=== PATIENT | female | born 1965 | race Caucasian/White ===

== ENCOUNTER 2020-01-16 08:20 | Emergency (ER) | payer OTHER, SELFPAY ==
[2020-01-16 08:22] VITALS: BP 149/82; PULSE 80; RESP 20; TEMP 36.6; O2SAT 98; BMI 47.7
--- NOTE | 2020-01-16 08:39 | RAD_ITS ---
STUDY: X-RAY - RIGHT KNEE REASON FOR EXAM: Female, 54 years old. pt tripped getting out of car this am. pt complains of rt elbow pain, bilateral knee pain. hx of vagovagal. states does have headache TECHNIQUE: 3 view(s) of the knee. COMPARISON: None. FINDINGS: Normal visualized distal femur. Normal visualized proximal tibia and fibula. Normal proximal tibiofibular articulation. There is mild degenerative arthrosis of the medial femorotibial compartment. Normal lateral femorotibial compartment. There is mild degenerative arthrosis of the patellofemoral articulation. The soft tissue structures are unremarkable. RAD/Knee 4 or More Views IMPRESSION: Degenerative arthrosis. Electronically Signed: Osbaldo Buenrostro, at 9:21 EDT Tel , Service support ,
--- NOTE | 2020-01-16 08:39 | RAD_ITS ---
STUDY: X-RAY - RIGHT ELBOW REASON FOR EXAM: Female, 54 years old. pt tripped getting out of car this am. pt complains of rt elbow pain, bilateral knee pain. hx of vagovagal. states does have headache TECHNIQUE: 3 view(s) of the elbow. COMPARISON: None. FINDINGS: Normal visualized humerus, radius and ulna. Normal radiocapitellar and ulnotrochlear articulations. The soft tissue structures are unremarkable. RAD/Elbow min 3 Views IMPRESSION: Normal x-ray examination of the elbow. Electronically Signed: Osbaldo Buenrostro, at 9:14 EDT Tel , Service support ,
--- NOTE | 2020-01-16 08:39 | RAD_ITS ---
STUDY: X-RAY - LEFT KNEE REASON FOR EXAM: Female, 54 years old. pt tripped getting out of car this am. pt complains of rt elbow pain, bilateral knee pain. hx of vagovagal. states does have headache TECHNIQUE: 3 view(s) of the knee. COMPARISON: None. FINDINGS: Normal visualized distal femur. Normal visualized proximal tibia and fibula. Normal proximal tibiofibular articulation. There is mild degenerative arthrosis of the medial femorotibial compartment. There is mild degenerative arthrosis of the lateral femorotibial compartment. There is mild degenerative arthrosis of the patellofemoral articulation. The soft tissue structures are unremarkable. RAD/Knee 4 or More Views IMPRESSION: Degenerative arthrosis. Electronically Signed: Osbaldo Buenrostro, at 9:24 EDT Tel , Service support ,
--- NOTE | 2020-01-16 08:39 | RAD_ITS ---
STUDY: X-RAY - LEFT ELBOW REASON FOR EXAM: Female, 54 years old. pt tripped getting out of car this am. pt complains of rt elbow pain, bilateral knee pain. hx of vagovagal. states does have headache TECHNIQUE: 3 view(s) of the elbow. COMPARISON: None. FINDINGS: Normal visualized humerus, radius and ulna. Normal radiocapitellar and ulnotrochlear articulations. The soft tissue structures are unremarkable. RAD/Elbow min 3 Views IMPRESSION: Normal x-ray examination of the elbow. Electronically Signed: Osbaldo Buenrostro, at 9:22 EDT Tel , Service support ,
--- NOTE | 2020-01-16 08:40 | ED.VIS.GEN ---
History of Present Illness Chief Complaint: Fall Informant: Patient, [employer] Instrument Repairer Narrative: Patient reports that she was getting out of a vehicle when she tripped falling forward. Landing on the bilateral knees and elbows. Her right hand is in a cast which she states she worries may have reinjured her thumb. No loss of consciousness but she is not sure if she hit her head but denies any outward signs of head trauma. She notes nausea. History of vasovagal syncope. EMS states that the patient was distraught on scene and calmed down in route. Last tetanus was 5 years ago. Past Medical History - Allergies and Home Meds Allergies/Adverse Reactions: Allergies banana Allergy (Verified 01/16/20 08:25) PT UNABLE TO RESPOND-NEEDS F/U Penicillins Allergy (Verified 01/16/20 08:25) Anaphylaxis prednisone Allergy (Verified 01/16/20 08:25) Hives Primary Care Physician: Bud Zuñiga MD [Primary Care Provider] - Smoking Status: Current every day smoker Review of Systems General: Denies: Chills, Fever, Sweats Eyes: Denies: Visual changes - bilaterally, Diplopia ENT: Denies: Rhinorrhea, Sore throat Cardiovascular: Reports: - - Syncope history. Denies: Chest pain, Palpitations Respiratory: Denies: Dyspnea, Cough, Dyspnea on exertion Gastrointestinal: Reports: Nausea. Denies: Abdominal pain, Vomiting, Diarrhea, Melena, Hematochezia Genitourinary: Denies: Dysuria, Hematuria, Frequency Musculoskeletal: Reports: Extremity Pain. Denies: Back pain Skin: Denies: Rash, Wounds Neurological: Denies: Headache, Weakness, Numbness Physical Exam Vital Signs/Narrative: Vital Signs Temp Pulse Resp BP Pulse Ox 01/16/20 08:22 97.9 F 80 20 H 149/82 H 98 Inital Vital Signs reviewed: Yes General: Well nourished, Well developed, Obese, No Acute Distress Head: Normocephalic, Atraumatic Eyes: Perrl, EOMI ENT: Moist mucous membranes, No rhinorrhea Neck: Supple, Nontender Cardiovascular: Regular rate, Regular rhythm, No murmurs Respiratory: No distress, CTA bilaterally, Chest nontender Abdomen: Soft, Nondistended, Normal bowel sounds, Tender - In the epigastrium to light palpation. Extremities: Tenderness - There is bilateral knee abrasions and contusions. Patient is able to ambulate. Bilateral elbow abrasions and contusion noted. Right hand in cast. NVI. Skin: Normal color, No rash Neurological: Alert, Oriented x3, Cranial nerves II-XII grossly intact, Normal Strength, Normal Sensation Psychological: Normal affect, Normal Mood Diagnostic/Tx/Re-eval Clinical Impression(s) from Imaging Studies Elbow X-Ray 01/16/20 08:39 IMPRESSION: Normal x-ray examination of the elbow. Electronically Signed: Osbaldo Buenrostro, at 9:14 EDT Tel , Service support , Elbow X-Ray 01/16/20 08:39 IMPRESSION: Normal x-ray examination of the elbow. Electronically Signed: Osbaldo Buenrostro, at 9:22 EDT Tel , Service support , Knee X-Ray 01/16/20 08:39 IMPRESSION: Degenerative arthrosis. Electronically Signed: Osbaldo Buenrostro, at 9:21 EDT Tel , Service support , Knee X-Ray 01/16/20 08:39 IMPRESSION: Degenerative arthrosis. Electronically Signed: Osbaldo Buenrostro, at 9:24 EDT Tel , Service support , - Medical Decision Making X-rays were negative. I suspect the patient also sustained a abdominal wall contusion. She received Zofran for nausea. Would recommend Tylenol Motrin at home. I can write for some Zofran as needed. Local wound care return if worsening or concerns ED Disposition - Plan for ED Patient: Disposition: Home or Assisted Living Diagnosis: Contusion of knee, left, Contusion of knee, right, Contusion of elbow, left, Contusion of elbow, right, Abdominal wall contusion, Fall Instructions: ED Mechanical Fall, ED EXTREMITY CONTUSION Upper, ED EXTREMITY CONTUSION Lower Prescriptions: Ondansetron [Zofran Odt] 4 mg PO Q8H PRN PRN #10 tab PRN Reason: Nausea Prescription Printed Referrals: Bud Zuñiga MD [Primary Care Provider] - 1 Week if not improving
[2020-01-16] MEDS: Ondansetron ODT 4 MG Tablet PO (08:46)
[2020-01-16] MEDS: Acetaminophen 500 MG Tablet 1000 MG PO (09:49)
[2020-01-16 09:50] VITALS: BP 130/62; PULSE 75; RESP 20; O2SAT 99
== END 2020-01-16 09:55 | disposition home or self-care (01) ==
PROVIDERS: Emergency Provider Emergency Medicine; PCP Family Medicine
DX: S50.01XA Contusion of right elbow, initial encounter (principal); S30.1XXA Contusion of abdominal wall, initial encounter; S50.02XA Contusion of left elbow, initial encounter; S80.02XA Contusion of left knee, initial encounter; S80.01XA Contusion of right knee, initial encounter; F17.200 Nicotine dependence, unspecified, uncomplicated; E66.9 Obesity, unspecified; W01.0XXA Fall on same level from slipping, tripping and stumbling without subsequent striking against object, initial encounter; Y93.89 Activity, other specified; Y92.89 Other specified places as the place of occurrence of the external cause; Y99.8 Other external cause status
CPT/HCPCS: 73080; 73564; 99285

== ENCOUNTER 2020-02-17 13:30 | Outpatient (RCR) | payer OTHER, SELFPAY ==
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
--- NOTE | 2020-04-27 13:10 | HP.OTDCNRP_ITS ---
DAVE PAYNE was seen in my office for initial evaluation on 01/26/20. The following Plan of Care was established for this patient: Initial Frequency: 2x /Week Initial Duration: 6 Weeks Plan: cont POC Anticipated Interventions: A/AAROM/PROM, Strengthening, Edema Control, Trigger point Release, Desensitization, Modalities, Orthoses, Joint Protection/Energy Conservation, Ergonomic Education This patient was last seen in our office 02/17/20. Pertinent comments regarding their Occupational therapy will appear below: pt was seen for 5 OT sessions. pt was making progress with edema and ROM- pt has not scheduled further apts. pt d/c at this time due to time lapse in services. At this point I will be discontinuing this patient from occupational therapy. I would be happy to see this patient again in the future if found appropriate by the physician. Thank you! Nicole Ferguson, OTR/L, CHT
== END 2020-02-17 19:00 | disposition home or self-care (01) ==
LOC: OT 13:30
PROVIDERS: PCP Family Medicine; Referring Provider Registered Nurse; Visit Provider Registered Nurse
DX: S60.211D Contusion of right wrist, subsequent encounter (principal); M25.531 Pain in right wrist; M79.641 Pain in right hand
CPT/HCPCS: 97035; 97110; 97140; 97166; 97530; 97760

== ENCOUNTER → 2020-05-10 12:47 | Outpatient (CLI) | payer OTHER, SELFPAY ==
--- NOTE | 2020-05-10 12:51 | EKG12_ITS ---
Test Reason : PRE OP Blood Pressure : / mmHG Vent. Rate : 094 BPM Atrial Rate : 094 BPM P-R Int : 184 ms QRS Dur : 090 ms QT Int : 366 ms P-R-T Axes : 044 -22 035 degrees QTc Int : 457 ms Normal sinus rhythm Leftward [place] Confirmed by JOSE ANTONIO BUTTERFIELD, ENOC ([id number]), features editor SKYLER CARUSO ([id number]) on 05/11/2020 12:44:43 PM Referred By: Regan Chawla Confirmed By:ENOC BRADY MD
[2020-05-10 13:45] LABS: Hematocrit 46.1 % (37-47); Hemoglobin 14.6 g/dL (12.0-15.0); Mean Corp Hgb Conc 31.7 g/dL (32-36); Mean Corpuscular Volume 94.7 fL (81-99); Mean Platelet Vol. 9.3 fl (6.2-12.0); Platelet Count 234 K/mm3 (150-450); RBC Distribution Width SD 41.9 fl (35.1-43.9); Red Blood Count 4.87 M/mm3 (4.2-5.4); White Blood Count 9.4 K/mm3 (4.4-11.0)
[2020-05-10 14:08] LABS: Anion Gap 5 (5-15); BUN 13 mg/dL (7-18); BUN/Creat Ratio 12.4 RATIO (10-20); Calcium,Total 8.9 mg/dL (8.5-10.1); Chloride 104 mmol/L (98-107); Creatinine, Serum 1.05 mg/dL (0.55-1.02); EST Glomerular Filtration Rate 58 mL/min (>60); Est Glom Filt Rate - Afr Amer 70 mL/min (>60); Glucose 93 mg/dL (74-106); Potassium 3.4 mmol/L (3.5-5.1); Sodium Level 141 mmol/L (136-145)
== END ==
PROVIDERS: PCP Family Medicine; Referring Provider Orthopaedic Surgery; Visit Provider Orthopaedic Surgery
DX: Z01.818 Encounter for other preprocedural examination (principal); Z11.59 Encounter for screening for other viral diseases
CPT/HCPCS: 36415; 80048; 85027; 87635; 93005; C9803; U0003

== ENCOUNTER 2020-08-13 13:10 | Outpatient (RCR) | payer OTHER, SELFPAY ==
[2020-08-13] MEDS: COVID-19 VACC, MRNA(PFIZER)/PF 30 MCG/0.3 ML SYRINGE IM (16:12)
[2020-09-03] MEDS: COVID-19 VACC, MRNA(PFIZER)/PF 30 MCG/0.3 ML SYRINGE IM (16:12)
== END 2020-08-13 23:59 ==
LOC: IMMUN 13:10
PROVIDERS: PCP Family Medicine; Visit Provider Family Medicine
DX: Z23 Encounter for immunization (principal)
CPT/HCPCS: 0001A; 0002A; 91300

== ENCOUNTER → 2021-01-21 09:45 | Outpatient (CLI) | payer OTHER, SELFPAY ==
--- NOTE | 2021-01-21 09:48 | VDLE_ITS ---
Reason For Study: Pain RIGHT CFV is compressible, spontaneous, phasic, competent and demonstrates normal augmentation. FV is compressible, spontaneous, phasic, competent and demonstrates normal augmentation. POP V is compressible, spontaneous, phasic, competent and demonstrates normal augmentation. T/P Trunk is compressible. PTV is compressible. RT PerV is compressible. SFJ is competent and measures 0.81cm x 0.83 cm. GSV proximal thigh measures 0.35cm x 0.35 cm. GSV at knee measures 0.39cm x 0.43 cm. GSV above knee is INCOMPETENT for greater than 0.5 seconds. GSV below knee is competent. SSV proximal calf is competent and measures 0.34cm x 0.38 cm. Incompetent perf noted Rt calf 10cm from medial malleolus Patient unable to tolerate compressions in the thigh Rt GSV disappears at mid thigh and reconstitutes at distal thigh, patient states she had bilateral vein ablations. Procedure This is a venous duplex using B-mode, color flow and spectral Doppler. Exam performed in department. A preliminary report was called and/or faxed to Dr. Chawla. VL/Venous Duplex US, Unilateral Interpretation Summary Deep veins of the right lower extremity are patent and compressible segmentally . There is no evidence of right lower extremity deep vein thrombosis. Valvular competence katarina ears intact within the proximal deep venous system on the right . The right great saphenous vein a ppears patent and compressible, though a short segment is absent in the right mid-thigh. The righ t sapheno-femoral junction is competent . The right great saphenous vein appears incompetent abov e the knee. The right great saphenous vein appears competent below the knee. The right small saphenou s vein is patent and competent. An incompetent building official vein is noted in the right calf, located 1 0 centimeters proximal to the right medial malleolus. Ordering Physician: Reagn Chawla Referring Physician: Bud Zuñiga Performed By: Svetlana Billingsley, ZAY, RVT
== END ==
PROVIDERS: PCP Family Medicine; Referring Provider Orthopaedic Surgery; Visit Provider Orthopaedic Surgery
DX: M79.604 Pain in right leg (principal); I87.2 Venous insufficiency (chronic) (peripheral)
CPT/HCPCS: 93923; 93971

== ENCOUNTER 2022-03-15 13:49 | Emergency (ER) | payer OTHER, SELFPAY ==
[2022-03-15 13:50] VITALS: BP 144/109; PULSE 79; RESP 15; TEMP 36.6; O2SAT 98; BMI 43.2
--- NOTE | 2022-03-15 14:09 | EKG12_ITS ---
Test Reason : COUGH Blood Pressure : / mmHG Vent. Rate : 075 BPM Atrial Rate : 075 BPM P-R Int : 184 ms QRS Dur : 090 ms QT Int : 416 ms P-R-T Axes : 050 -20 036 degrees QTc Int : 464 ms Normal sinus rhythm Normal ECG Confirmed by JOSE ANTONIO BUTTERFIELD, ENOC ([id number]), story editor LEXIE GUARDADO ([id number]) on 03/20/2022 9:36:09 AM Referred By: Confirmed By:ENOC BRADY MD
--- NOTE | 2022-03-15 14:10 | EX.ED.DYSGE1 ---
HPI History of Present Illness Chief Complaint: Cough Informant: patient Onset/Context/Timing Onset: Days (9 days) Context: Gradual Onset Current Severity: Mild Maximum Severity: Moderate Narrative Narrative: Patient presents with 9-day history of shortness of breath with cough and congestion. She is bringing up dark-colored sputum. She denies fever or chills. She has had 2 negative COVID test. She [facility] the [facility] today due to concern for chest heaviness and leg swelling she was sent to the emergency room. Patient does have a family history of blood clots but denies any personal history. She denies any significant leg pain. [facility] Medical History Acute maxillary sinusitis, unspecified Uncontrolled hypertension Home Medications furosemide 40 mg tablet 40 mg PO DAILY 01/16/20 [History Last Taken Unknown] ondansetron 4 mg disintegrating tablet 4 mg PO Q8H PRN PRN Nausea #10 tabs 01/16/20 [Rx Last Taken Unknown] albuterol sulfate 90 mcg/actuation aerosol inhaler 1 inh inhalation ONCE 03/15/22 [History Last Taken Unknown] alprazolam 0.5 mg tablet (Xanax) 0.5 mg PO DAILY 03/15/22 [History Last Taken Unknown] azithromycin 250 mg tablet 250 mg PO QDAY #12 tabs 03/15/22 [Rx Last Taken Unknown] diclofenac potassium 25 mg capsule 25 mg PO BID 03/15/22 [History Last Taken Unknown] zolpidem 12.5 mg tablet,extended release,multiphase (Ambien CR) 12.5 mg PO QHS PRN 03/15/22 [History Last Taken Unknown] Allergy/AdvReac Type Severity Reaction Status Date / Time banana Allergy PT UNABLE Verified 03/15/22 13:13 TO RESPOND-NEEDS F/U Penicillins Allergy Anaphylaxis Verified 03/15/22 13:13 prednisone Allergy Hives Verified 03/15/22 13:13 vancomycin Allergy Other Verified 03/15/22 13:50 Family History Other Cancer Heart disease Kidney disease Social History Smoking Status: Never smoker alcohol intake: never ROS ROS ED Constitutional Constitutional ED: Denies chills or fever(s) Eyes Eyes: Denies change in vision or discharge from eye(s) ENT ENT ED: Reports other Details: Congestion ; Denies discharge from eye(s), rhinorrhea or sore throat Cardiovascular Cardiovascular: Reports chest pain and other Details: Chest heaviness ; Denies palpitations Respiratory/Chest Respiratory/Chest: Reports cough, dyspnea and sputum Gastrointestinal Gastrointestinal: Denies abdominal pain, diarrhea, nausea or vomiting Genitourinary Genitourinary ED: Denies difficulty urinating or dysuria Musculoskeletal Musculoskeletal: Denies back pain or extremity pain Integumentary Denies Abrasions or rash Neurologic Neurologic: Denies headache(s) or weakness Psychiatric Psychiatric: Denies anxiety or depression Allergic/Immunologic Allergic/Immunologic ED: Denies lip swelling or urticaria EXAM Physical Exam Const Vital Signs: 03/15/22 13:50 03/15/22 13:58 Temperature 97.8 F Temperature Source Temporal Pulse Rate 79 Respiratory Rate 15 Respiratory Effort Short of Breath Respiratory Depth Normal Blood Pressure 144/109 H Blood Pressure Mean 120 Pulse Ox 98 Oxygen Delivery Method Room Air Positive well nourished and well developed General Appearance ED: well developed HEENT Reports normocephalic and head/scalp atraumatic Eyes PERRL and EOMs intact bilaterally Neck supple Chest Wall inspection of chest normal and palpation of chest normal Resp normal respiratory effort and clear to auscultation bilaterally Cardio regular rate and regular rhythm GI normal to inspection, nondistended, normoactive bowel sounds Palpation: soft Extremity Extremity Narrative: 1+ bilateral lower extremity edema, symmetric. No calf tenderness or edema. Neuro oriented x3 and no sensory deficits noted Sensorium / Orientation: alert Motor Exam: strength 5/5 throughout Psych mental status grossly normal Skin no rashes or lesions noted MDM MDM MDM Narrative Medical decision making narrative: Patient placed on cardiac surgeon. EKG, chest x-ray, lab work obtained. Lab Data Attestation: I reviewed the patient's lab results. Labs: Laboratory Results - last 24 hr 03/15/22 03/15/22 03/15/22 14:30 14:30 14:30 WBC 5.6 RBC 4.73 Hgb 15.3 H Hct 44.9 MCV 94.9 MCH 32.3 H MCHC 34.1 RDW Std Deviation 42.9 RDW Coeff of Darion 12.3 Plt Count 178 MPV 9.5 Immature Gran % (Auto) 0.900 Neut % (Auto) 54.4 Lymph % (Auto) 35.3 [place] % (Auto) 6.5 Eos % (Auto) 2.5 Baso % (Auto) 0.4 Absolute Neuts (auto) 3.0 Absolute Lymphs (auto) 1.96 Nucleated RBC % 0 D-Dimer Quant (PE/DVT) 0.54 H* Sodium 143 Potassium 3.5 Chloride 107 Carbon Dioxide 32.0 Anion Gap 4 L BUN 15 Creatinine 1.19 H Estim Creat Clear Calc 46.93 Est GFR (MDRD) Af Amer 60 Est GFR (MDRD) Non-Af 50 L BUN/Creatinine Ratio 12.6 Glucose 125 H Calcium 9.3 Troponin I High Sens 9 Radiography Chest X-Ray - ED: 1 View, Read by ED Physician and Chronic Changes Diagnostic Testing: Clinical Impression(s) from Imaging Studies Chest X-Ray 03/15/22 14:35 IMPRESSION: Normal x-ray examination of the chest. Electronically Signed: Bj Parada MD at 14:46 EDT , Chest CTA 03/15/22 15:03 IMPRESSION: No demonstrated PE, or thoracic aortic aneurysm or dissection Chronic interstitial changes in both lung pacheco with chronic bronchitis but no superimposed infiltrate or effusion Degenerative bony changes Electronically Signed: Bj Parada MD at 15:40 EDT , EKG Initial EKG: Attestation: I personally reviewed and interpreted this EKG as follows: Interpretation: Sinus Rhythm (Sinus at 75 with no acute ischemia. ) Treatment and Re-Evaluation Narrative: CBC is unremarkable with slightly concentrated hemoglobin of 15.3. Chemistry studies unremarkable. Troponin normal. D-dimer 0.54. Chest x-ray per my interpretation shows no obvious infiltrate. Radiology interpretation is reviewed. CTA of the chest reveals no evidence of PE but does have signs of chronic bronchitis. When I reviewed the visit note from the [facility] it appears they already prescribed her Zithromax. She confirms that they did send it to the pharmacy for her. She will pick this up and start this medication. Return instructions are provided. Discharge Plan Triage Chief Complaint: Cough ED Provider: Marcy Bailey Dx/Rx/DC Orders Clinical Impression: Bronchitis Instructions: ED Upper Resp Infec Abx Tx Prescriptions: No Action diclofenac potassium 25 mg capsule 25 mg PO BID zolpidem [Ambien CR] 12.5 mg tablet,ext release multiphase 12.5 mg PO QHS PRN alprazolam [Xanax] 0.5 mg tablet 0.5 mg PO DAILY albuterol sulfate 90 mcg/actuation HFA aerosol inhaler 1 inh inhalation ONCE azithromycin 250 mg tablet 250 mg PO QDAY Qty: 12 0RF Rx Instructions: 2 tablets today, then 1 tablet daily on days 2 through 11 furosemide 40 MG tablet 40 mg PO DAILY ondansetron 4 MG tablet 4 mg PO Q8H PRN PRN (Reason: Nausea) Qty: 10 0RF Primary Care Provider: Bud Zuñiga Referrals: Bud Zuñiga MD [Primary Care Provider] - 1-2 Weeks Disposition Disposition: Home, Self Care
--- NOTE | 2022-03-15 14:35 | RAD_ITS ---
STUDY: X-RAY CHEST REASON FOR EXAM: Female, 56 years old. Sob, cough, cp TECHNIQUE: Single AP portable view of the chest. COMPARISON: None. FINDINGS: The lungs are clear and expanded. There is no demonstrated pleural abnormality. Normal size heart. Normal mediastinum and ai. Normal visualized pulmonary arteries. Normal visualized aortic arch and descending thoracic aorta. Normal visualized thoracic spine. Normal visualized ribs, clavicles, and shoulders. There is no demonstrated abnormality of the visualized soft tissue structures of the upper abdomen. RAD/Chest 1 View (Portable) IMPRESSION: Normal x-ray examination of the chest. Electronically Signed: Bj Parada MD at 14:46 EDT ,
[2022-03-15 14:39] LABS: Absolute Lymphocyte Count 1.96 X10^3/uL (0.83-4.51); Basophil# 0.02 X10^3/uL; Basophil% 0.4 % (0-1); Eosinophil# 0.14 X10^3/uL; Eosinophils% 2.5 % (0-5); Hematocrit 44.9 % (37-47); Hemoglobin 15.3 g/dL (12.0-15.0); Lymphocyte # 1.96 X10^3/ul (0.83-4.51); Lymphocyte % 35.3 % (19-41); Mean Corp Hgb Conc 34.1 g/dL (32-36); Mean Corpuscular Hgb 32.3 pg (27.0-32.0); Mean Corpuscular Volume 94.9 fL (81-99); Mean Platelet Vol. 9.5 fl (6.2-12.0); Monocyte# 0.36 X10^3/uL; Monocyte% 6.5 % (0-10); NRBC Flagged by Analyzer 0 % (0-5); Neutrophil # 3.03 X10^3/uL (2.7-7.7); Neutrophil % 54.4 % (47-70); Platelet Count 178 K/mm3 (150-450); RBC Distribution Width CV 12.3 % (11.6-14.6); RBC Distribution Width SD 42.9 fl (35.1-43.9); Red Blood Count 4.73 M/mm3 (4.2-5.4); White Blood Count 5.6 K/mm3 (4.4-11.0)
[2022-03-15 14:50] LABS: D-Dimer Quantitative (DVT/PE) 0.54 FEU/ug/m (0.27-0.49)
[2022-03-15 15:01] LABS: Anion Gap 4 (5-15); BUN 15 mg/dL (7-18); BUN/Creat Ratio 12.6 RATIO (10-20); Calcium,Total 9.3 mg/dL (8.5-10.1); Chloride 107 mmol/L (98-107); Creatinine, Serum 1.19 mg/dL (0.55-1.02); EST Glomerular Filtration Rate 50 mL/min (>60); Est Glom Filt Rate - Afr Amer 60 mL/min (>60); Estimated Creatinine Clearance 46.93 ml/min; Glucose 125 mg/dL (74-106); Potassium 3.5 mmol/L (3.5-5.1); Sodium Level 143 mmol/L (136-145); Troponin-I HS 9 pg/mL (3.0-54.0)
--- NOTE | 2022-03-15 15:03 | CT_ITS ---
STUDY: CTA CHEST REASON FOR EXAM: Female, 56 years old. Chest pain and shortness of breath RADIATION DOSAGE (If Supplied By Facility): CTDIvol = ( 13.81 ) mGy, DLP = ( 484.41 ) mGycm TECHNIQUE: The examination was performed with the intravenous administration of IV 100mL Isovue-370. Post-processing of the angiographic images was performed, with multiplanar reformation and 3D reconstruction. Individualized dose optimization techniques were used for this CT. COMPARISON: None. FINDINGS: Normal enhancement of the main pulmonary artery and right and left pulmonary arteries. Normal enhancement of the bilateral peripheral pulmonary arteries. There is no demonstrated pulmonary embolism. Normal thoracic aorta and visualized great vessels. There is no demonstrated aortic dissection. Normal heart and pericardium. No calcified coronary vessels noted. Normal mediastinum. Normal hilar regions. There is peribronchial thickening. The lungs are well expanded. Lungs are expanded, chronic interstitial changes noted in both lung pacheco without organized infiltrate, or suspicious noncalcified mass or nodule. Normal pleura. Normal chest wall structures. There are degenerative changes of thoracic spine. Normal visualized upper abdomen. CT/CTA Chest W/WO Contrast IMPRESSION: No demonstrated PE, or thoracic aortic aneurysm or dissection Chronic interstitial changes in both lung pacheco with chronic bronchitis but no superimposed infiltrate or effusion Degenerative bony changes Electronically Signed: Bj Parada MD at 15:40 EDT ,
[2022-03-15 16:03] VITALS: PULSE 62; RESP 18; O2SAT 98
== END 2022-03-15 16:03 | disposition home or self-care (01) ==
PROVIDERS: Emergency Provider Emergency Medicine; PCP Family Medicine; Visit Provider Emergency Medicine
DX: J40 Bronchitis, not specified as acute or chronic (principal); I10 Essential (primary) hypertension; R06.02 Shortness of breath; M79.89 Other specified soft tissue disorders; R07.9 Chest pain, unspecified
CPT/HCPCS: 71045; 71275; 80048; 84484; 85025; 85379; 93005; 99284; Q9967

== ENCOUNTER 2022-06-08 06:05 | Inpatient (IN) | payer OTHER, SELFPAY ==
[2022-06-08] VITALS (9 sets, daily range): BP systolic 99–132; BP diastolic 40–99; PULSE 72–106; RESP 12–18; TEMP 36.1–36.8; O2SAT 95–99; BMI 41.7; BMI 41.1
--- NOTE | 2022-06-08 06:23 | CT_ITS ---
EXAM: CT HEAD WITHOUT INTRAVENOUS CONTRAST CLINICAL INDICATION: vertigo TECHNIQUE: Multiple axial images were obtained of the head without intravenous contrast. This CT exam was performed using one or more of the following dose reduction techniques: automated exposure control, adjustment of the mA and/or kV according to patient size, and/or use of iterative reconstruction technique. This report was created using [employer] report generation technology. COMPARISON: None. FINDINGS: BRAIN AND EXTRA-AXIAL SPACES: Unremarkable. No intra- or extra-axial hemorrhage. No evidence of acute infarct. No intracranial mass or mass effect. There is preservation of the rogers/white matter interface. Posterior fossa structures are unremarkable. Ventricles are appropriate for age. No hydrocephalus. Basal cisterns are patent. BONES/JOINTS: Unremarkable. No discrete lytic or blastic abnormalities. SOFT TISSUES: Right parietal scalp swelling. SINUSES: Unremarkable as visualized. Clear. MASTOID AIR CELLS: Unremarkable. Clear. ORBITS: Visualized globes, extraocular muscles, optic nerves and retrobulbar fat appear unremarkable. CT/Brain/Head without Contrast IMPRESSION: 1. Right parietal scalp swelling. 2. No acute intracranial abnormality. Electronically Signed: Moe Nelson MD at 7:31 EST ,
--- NOTE | 2022-06-08 06:24 | EKG12_ITS ---
Test Reason : SYNCOPE Blood Pressure : / mmHG Vent. Rate : 074 BPM Atrial Rate : 074 BPM P-R Int : 216 ms QRS Dur : 104 ms QT Int : 468 ms P-R-T Axes : 045 -29 025 degrees QTc Int : 519 ms Sinus rhythm with 1st degree A-V block Minimal voltage criteria for LVH, may be normal variant ( R in aVL ) Cannot rule out Inferior infarct , age undetermined Abnormal ECG Confirmed by LON BUTTERFIELD, FEROZ ([id number]), international editorial producer LEXIE GUARDADO ([id number]) on 06/12/2022 12:24:32 PM Referred By: Confirmed By:FEROZ FORREST MD
--- NOTE | 2022-06-08 06:25 | RAD_ITS ---
EXAM: XR THORACIC SPINE, 2 VIEWS CLINICAL INDICATION: fall/pain TECHNIQUE: Frontal and lateral views of the thoracic spine. This report was created using [employer] report generation technology. COMPARISON: None. FINDINGS: VERTEBRAE: Unremarkable. Preserved vertebral body height. No fracture. No spondylolisthesis. Preservation of the normal thoracic kyphosis. No significant facet arthropathy. DISC SPACES: Degenerative changes of the intervertebral discs. RAD/Thoracic Spine 2 Views IMPRESSION: 1. No acute injuries identified involving the thoracic spine. 2. Degenerative changes. Electronically Signed: Moe Nelson MD at 7:11 EST ,
--- NOTE | 2022-06-08 06:25 | CT_ITS ---
EXAM: CT CERVICAL SPINE WITHOUT INTRAVENOUS CONTRAST CLINICAL INDICATION: pain/trauma TECHNIQUE: Helically acquired images were obtained of the cervical spine without intravenous contrast. 2D reformatted images were reviewed. This CT exam was performed using one or more of the following dose reduction techniques: automated exposure control, adjustment of the mA and/or kV according to patient size, and/or use of iterative reconstruction technique. This report was created using [employer] report generation technology. COMPARISON: None. FINDINGS: VERTEBRAE: Unremarkable. No fracture. No traumatic subluxation. No discrete lytic or blastic abnormality. Normal alignment. Normal craniocervical junction and cervicothoracic junction. DISCS/SPINAL CANAL/NEURAL FORAMINA: Unremarkable. Disc heights are preserved. No critical stenosis. SOFT TISSUES: Unremarkable. No prevertebral soft tissue swelling. LYMPH NODES: Unremarkable. No cervical adenopathy. LUNG APICES: Unremarkable as visualized. Clear. CT/Spine Cervical without Contras IMPRESSION: No evidence of acute cervical spinal fracture or spondylolisthesis. Electronically Signed: Moe Nelson MD at 7:30 EST ,
--- NOTE | 2022-06-08 06:25 | EX.ED.DYSGE1 ---
HPI History of Present Illness Chief Complaint: Syncope Informant: patient Onset/Context/Timing Onset: Today (JPTA) Context: Sudden Onset Timing: Continuous Quality: spinning/vertigo Location: head Current Severity: Moderate Maximum Severity: Moderate Worsened by: moving head Relieved by: remaining still Associated Symptoms Associated Symptoms: headache, neck/back pain Narrative Narrative: Patient got up this morning just prior to arrival, she was standing at the vanity in her bathroom and told her that she did not feel well and he states he witnessed her shortly thereafter fall backward like a tree. She hit the floor hard, with her head. She had her eyes open subsequently and was not responding for short period of time in which case the patient's immediately called 911. She is awake now and acting her self but feels like things are spinning, and she has a headache as well as pain in her neck and her back around her right shoulder blade. She is amnestic to any events right before her fall and does not remember what kind of prodromal symptoms she was having. She does not recall ever experiencing the vertigo that she currently has in the past. She had influenza in April but recovered from that and has had no other illness recently. She denies any numbness tingling weakness in an arm or leg right now. She denies any chest pain, shortness of breath, GI symptoms except for some nausea. Her vision is okay. [facility] Medical History Acute maxillary sinusitis, unspecified Uncontrolled hypertension Home Medications furosemide 40 mg tablet 40 mg PO DAILY 01/16/20 [History Last Taken Unknown] albuterol sulfate 90 mcg/actuation aerosol inhaler 1 inh inhalation ONCE 03/15/22 [History Last Taken Unknown] alprazolam 0.5 mg tablet (Xanax) 0.5 mg PO DAILY 03/15/22 [History Last Taken Unknown] diclofenac potassium 25 mg capsule 25 mg PO BID 03/15/22 [History Last Taken Unknown] zolpidem 12.5 mg tablet,extended release,multiphase (Ambien CR) 12.5 mg PO QHS 03/15/22 [History Last Taken Unknown] levofloxacin 250 mg tablet mg PO DAILY 06/08/22 [History Last Taken Unknown] Allergy/AdvReac Type Severity Reaction Status Date / Time banana Allergy PT UNABLE Verified 06/08/22 07:28 TO RESPOND-NEEDS F/U Penicillins Allergy Anaphylaxis Verified 06/08/22 07:28 prednisone Allergy Hives Verified 06/08/22 07:28 vancomycin Allergy Other Verified 06/08/22 07:28 Family History Other Cancer Heart disease Kidney disease Social History Smoking Status: Never smoker alcohol intake: never ROS ROS ED Constitutional Constitutional ED: Denies chills or fever(s) Eyes Eyes: Denies change in vision or diplopia ENT ENT ED: Reports headache(s) and vertigo; Denies nasal congestion, rhinorrhea or sore throat Cardiovascular Cardiovascular: Denies chest pain or palpitations Respiratory/Chest Respiratory/Chest: Denies cough or dyspnea Gastrointestinal Gastrointestinal: Reports nausea; Denies abdominal pain, diarrhea or vomiting Genitourinary Genitourinary ED: Denies dysuria or hematuria Musculoskeletal Musculoskeletal: Denies back pain or neck pain Integumentary Denies abscess or rash Neurologic Neurologic: Reports headache(s); Denies paresthesias or weakness Psychiatric Psychiatric: Denies anxiety or suicidal thoughts EXAM Physical Exam Const Vital Signs: 06/08/22 06:05 06/08/22 07:15 Temperature 97.9 F Temperature Source Temporal Pulse Rate 80 72 Respiratory Rate 18 15 Blood Pressure 132/77 H Blood Pressure Mean 95 Pulse Ox 99 Oxygen Delivery Method Room Air Positive well nourished, well developed and obese General Appearance ED: well developed and NAD Nutritional Appearance: obese HEENT Reports TM's clear and moist mucous membranes HEENT Narrative: No sign of raccoon eyes or garrido sign. No CSF otorhinorrhea. Boggy tender hematoma right parietal occipital scalp with an overlying superficial partial-thickness clean appearing 0.5 cm laceration without active bleeding Tympanic Membrane ED: Yes TM's clear Eyes PERRL and EOMs intact bilaterally Neck full ROM and supple Neck Narrative: Diffuse midline C-spine tenderness. No step-off palpable. General: tenderness Chest Wall inspection of chest normal and palpation of chest normal Resp normal respiratory effort and clear to auscultation bilaterally Cardio regular rate, regular rhythm and no murmurs GI non-tender and non-distended Auscultation: normoactive bowel sounds Palpation: soft Back/Spine no CVA tenderness Back/Spine Narrative: Initially palpation of the thoracic and lumbar spine yielded no tenderness. However after palpating her neck which was tender, she then has very mild midline tenderness down to around T5 without any signs of trauma or step-off. Also tender around the right periscapular area. General Back: other FROM Extremity normal to inspection General Extremety ED: Negative for edema, pulses abnormal or tenderness General Extremity: Negative for edema or pulses abnormal Neuro oriented x3, CN's II-XII intact bilaterally and no sensory deficits noted Sensorium / Orientation: awake and alert Motor Exam: strength 5/5 throughout Psych mental status grossly normal Skin no rashes or lesions noted and no wounds MDM MDM MDM Narrative Medical decision making narrative: It is unknown here if the patient had a syncopal episode followed by head injury with traumatic etiology of vertigo, or if vertigo was the initial symptom that caused her to have disequilibrium and fall, and hit her head. She underwent CT scanning of the head as well as labs, EKG, chest x-ray, also obtained a CT of the neck/cervical spine as well as x-rays of the thoracic spine. I did not CT the thoracic spine because my suspicion of fracture here is very low, and I was trying to limit the radiation exposure to the patient to necessarily. My interpretation of the CT agrees with that of the radiologist. His CT of the head shows nothing acute except for scalp swelling where she hit her head, and the CT of the cervical spine shows no acute fractures or dislocations. 2 view chest x-ray on my interpretation is negative for pneumonia, pneumothorax, and 2 view thoracic spine x-ray on my interpretation negative for any fracture or dislocation. Radiology in agreement. I reviewed the reports. Metabolically, the patient has a severely low potassium. Unknown if this was causing periodic hypokalemic paralysis and that could have caused her fall, she has some mild MAILE, we will hydrate her, replace potassium and admit her to the hospital for this constellation of issues at this time. Patient states she has had issues with low potassium in the past, it was 3.5 a week ago. She has never seen a account services representative for this. states she has been taking potassium twice daily at least since February. Regarding her scalp laceration, I offered to repair today, she declined, I think that is okay. It is very small and not bleeding anymore, and is only long enough to take 1 staple. Lab Data Attestation: I reviewed the patient's lab results. Labs: Laboratory Results - last 24 hr 06/08/22 06/08/22 06:25 06:25 WBC 6.8 RBC 5.05 Hgb 16.0 H Hct 45.9 MCV 90.9 MCH 31.7 MCHC 34.9 RDW Std Deviation 39.7 RDW Coeff of Darion 11.9 Plt Count 214 MPV 9.5 Immature Gran % (Auto) 3.500 H Neut % (Auto) 57.0 Lymph % (Auto) 27.5 Mcintosh % (Auto) 10.1 H Eos % (Auto) 1.0 Baso % (Auto) 0.9 Absolute Neuts (auto) 3.9 Absolute Lymphs (auto) 1.87 Nucleated RBC % 0 Sodium 136 Potassium 2.5 L* Chloride 89 L Carbon Dioxide 37.0 H Anion Gap 10 BUN 23 H Creatinine 1.57 H Estim Creat Clear Calc 35.57 Est GFR (MDRD) Af Amer 44 L Est GFR (MDRD) Non-Af 36 L BUN/Creatinine Ratio 14.6 Glucose 144 H Calcium 9.6 Troponin I High Sens 6 Radiography Diagnostic Testing: Clinical Impression(s) from Imaging Studies Brain CT 06/08/22 06:23 IMPRESSION: 1. Right parietal scalp swelling. 2. No acute intracranial abnormality. Electronically Signed: Moe Nelson MD at 7:31 EST Reading Location ID and State: [facility] / [place] Tel , Service support , Cervical Spine CT 06/08/22 06:25 IMPRESSION: No evidence of acute cervical spinal fracture or spondylolisthesis. Electronically Signed: Moe Nelson MD at 7:30 EST , Thoracic Spine X-Ray 06/08/22 06:25 IMPRESSION: 1. No acute injuries identified involving the thoracic spine. 2. Degenerative changes. Electronically Signed: Moe Nelson MD at 7:11 EST Reading Location ID and State: [facility] / [place] Tel , Service support , Chest X-Ray 06/08/22 06:26 IMPRESSION: No acute findings in the chest. Electronically Signed: Moe Nelson MD at 7:10 EST Reading Location ID and State: [facility] / [place] Tel , Service support , Rhythm Strip Rhythm Strip: Sinus Rhythm Rate: 75 Ectopy: None EKG Initial EKG: Attestation: I personally reviewed and interpreted this EKG as follows: Interpretation: Sinus Rhythm, No Acute Injury Pattern and Non-Specific ST Changes (flattening laterally) Prior EKG tracings: available for review Prior: Changed (prior nml) Discharge Plan Dx/Rx/DC Orders Clinical Impression: Syncope, Closed head injury, Acute hypokalemia, MAILE (acute kidney injury), Vertigo Disposition Disposition: Acute Care Hospital [facility]
--- NOTE | 2022-06-08 06:26 | RAD_ITS ---
EXAM: XR CHEST, 2 VIEWS CLINICAL INDICATION: fall/trauma TECHNIQUE: Frontal and lateral views of the chest. This report was created using [employer] report generation technology. COMPARISON: 03/15/2022 FINDINGS: LUNGS AND PLEURAL SPACES: Unremarkable. No consolidation or edema. No pneumothorax. No effusion. HEART: Unremarkable. Cardiac silhouette not enlarged. MEDIASTINUM: Central airways and mediastinal contour are unremarkable. BONES/JOINTS: Degenerative changes of the spine. SOFT TISSUES: Unremarkable. RAD/Chest PA and Lateral IMPRESSION: No acute findings in the chest. Electronically Signed: Moe Nelson MD at 7:10 EST ,
[2022-06-08 06:30] LABS: Absolute Lymphocyte Count 1.87 X10^3/uL (0.83-4.51); Absolute Neutrophil Count 3.9 X10^3/uL (2.0-7.7); Basophil# 0.06 X10^3/uL; Basophil% 0.9 % (0-1); Eosinophil# 0.07 X10^3/uL; Hematocrit 45.9 % (37-47); Lymphocyte # 1.87 X10^3/ul (0.83-4.51); Lymphocyte % 27.5 % (19-41); Mean Corp Hgb Conc 34.9 g/dL (32-36); Mean Corpuscular Hgb 31.7 pg (27.0-32.0); Mean Corpuscular Volume 90.9 fL (81-99); Mean Platelet Vol. 9.5 fl (6.2-12.0); Monocyte# 0.69 X10^3/uL; Monocyte% 10.1 % (0-10); NRBC Flagged by Analyzer 0 % (0-5); Neutrophil # 3.87 X10^3/uL (2.7-7.7); Platelet Count 214 K/mm3 (150-450); RBC Distribution Width CV 11.9 % (11.6-14.6); RBC Distribution Width SD 39.7 fl (35.1-43.9); Red Blood Count 5.05 M/mm3 (4.2-5.4); White Blood Count 6.8 K/mm3 (4.4-11.0)
[2022-06-08] MEDS: 0.9% Normal Saline 1,000 ML 999 ML IV (06:33)
[2022-06-08] MEDS: Metoclopramide 10 MG/2 ML Vial 5 MG IV (06:34)
[2022-06-08 07:05] LABS: Anion Gap 10 (5-15); BUN 23 mg/dL (7-18); BUN/Creat Ratio 14.6 RATIO (10-20); Calcium,Total 9.6 mg/dL (8.5-10.1); Chloride 89 mmol/L (98-107); Creatinine, Serum 1.57 mg/dL (0.55-1.02); EST Glomerular Filtration Rate 36 mL/min (>60); Est Glom Filt Rate - Afr Amer 44 mL/min (>60); Estimated Creatinine Clearance 35.57 ml/min; Glucose 144 mg/dL (74-106); Potassium 2.5 mmol/L (3.5-5.1); Sodium Level 136 mmol/L (136-145); Troponin-I HS 6 pg/mL (3.0-54.0)
[2022-06-08] MEDS: Potassium Chloride Oral Tablet 20 MEQ 40 MEQ PO (07:55)
[2022-06-08] MEDS: Acetaminophen 325 MG Tablet 650 MG PO (08:00)
[2022-06-08] MEDS: Potassium Chloride 10mEq/100mL 10 MEQ/100 ML IV.SOLN. 100 MEQ IV BOLUS ×5 (08:03→19:21)
--- NOTE | 2022-06-08 08:17 | HP.PCM.HOS_ITS ---
HPI - General General Date of Admission: 06/08/22 Date of Service: 06/08/22 Chief Complaint: Syncope and fall in the morning today. Hit her head HPI Narrative DAVE PAYNE, is a 56 F was brought to ED by after she had syncope and fall in the ED. She woke up in the morning feeling like nausea and then she went to bathroom. As per , after exiting from bathroom, she suddenly fell backward with eyes open. She was not responding for a few minutes. As the talking to ambulance, she woke up but was confused and is staring look. As per patient she was also having vertigo. Denies any involuntary body movement or tonic-clonic movement of extremities. She was not incontinent. After few minutes she was back to normal. She complained of pain over the back of her head and right scapular area. Of note she wears apple watch and was heart rate was 120s yesterday. She had for syncope in in 2019 and 2019. In early part of April she had bronchitis cough and since it was persistent seesaw doctor on 28 May 2022 and was given Levaquin. She had 6 doses of Levaquin to 50 mg and 4 doses more left. Her cough shortness of breath all resolved. No fever. Denies pleuritic symptoms or dysuria. No abdominal pain. She did not had vomiting. 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 At that time she also had echo and stress test which as per the patient was normal. She also had cardiac cath about 10 years ago and had angioplasty but no stent. In ED, she had an EKG which shows sinus rhythm first-degree block, minimal LVH. QTC 500 ms. Past medical history: Diagnosed asthma on spirometry few years ago. Syncope status post loop recorder. Denies smoking. [facility] Medical History Acute maxillary sinusitis, unspecified Uncontrolled hypertension Home Medications furosemide 40 mg tablet 40 mg PO DAILY 01/16/20 [History Last Taken Unknown] albuterol sulfate 90 mcg/actuation aerosol inhaler 1 inh inhalation ONCE 03/15/22 [History Last Taken Unknown] alprazolam 0.5 mg tablet (Xanax) 0.5 mg PO DAILY 03/15/22 [History Last Taken Unknown] diclofenac potassium 25 mg capsule 25 mg PO BID 03/15/22 [History Last Taken Unknown] zolpidem 12.5 mg tablet,extended release,multiphase (Ambien CR) 12.5 mg PO QHS 03/15/22 [History Last Taken Unknown] levofloxacin 250 mg tablet mg PO DAILY 06/08/22 [History Last Taken Unknown] Allergy/AdvReac Type Severity Reaction Status Date / Time banana Allergy Other Verified 06/08/22 10:40 Penicillins Allergy Anaphylaxis Verified 06/08/22 07:28 prednisone Allergy Hives Verified 06/08/22 07:28 vancomycin Allergy Other Verified 06/08/22 07:28 Family History Other Cancer Heart disease Kidney disease Social History Smoking Status: Never smoker alcohol intake: never ROS ROS Narrative Constitutional: Denies fever, fatigue or weakness. HEENT: Fall, laceration on back of head. Rest as described in HPI. Respiratory/Chest: Denies chest pain, shortness of breath at rest or with exertion. Denies missed heartbeat. Gastrointestinal: Nausea. No vomiting. Denies coffee ground emesis,Melena Genitourinary: Denies burning urination or new urinary tract symptoms Musculoskeletal: Denies joint pain and limited range of motion Neurologic: Denies seizure-like activity. No history of migraine headache or stroke. skin: No ulcer. No rash Endocrinology: Reports systems reviewed and no addt'l complaints, except as documented Hematologic/Lymphatic: Reports systems reviewed and no addt'l complaints, except as documented Rest 14 ROS are negative except as mentioned in HPI Vital Signs Vital Signs Vital Signs: 06/08/22 06:05 06/08/22 07:15 06/08/22 08:00 Temperature 97.9 F Temperature Source Temporal Pulse Rate 80 72 79 Respiratory Rate 18 15 17 Blood Pressure 132/77 H 106/77 Blood Pressure Mean 95 86 Pulse Ox 99 97 Oxygen Delivery Method Room Air Room Air Weight Weight: 250 lb 14.177 oz Body Mass Index (BMI) 41.7 Physical Exam Narrative Physical exam General: Alert, Oriented x3, Cooperative. Awake HEENT: Small laceration over occipital region of head. Atraumatic, PERRLA, EOMI, Normocephalic Oral: Oral mucosa moist. No Gingival or Mucosal Lesions/ Ulcerations Neck: Supple, No JVD, Negative Carotid Bruits Lungs: Air entry equal in bilateral lung bases. No crepitation/rhonchi Cardiovascular: Regular rate, Regular Rhythm, Normal S1, Normal S2, No murmurs Abdomen: Bowel Sounds Present, Soft, Non Tender, Non-Distended : No renal angle tenderness. No suprapubic tenderness. Extremities: No edema, Capillary Refill Less than 3 Seconds Skin: No rashes, No breakdown Musculoskeletal: Mild soft tissue muscle tenderness over back of neck and right scapular area. No Tenderness to extremity joints. Neurological: Cranial nerves II-XII grossly intact, DTR 2+/4 and Symmetrical, Neuro grossly intact Psych/Mental Status: flat affect Results Lab / Micro Data Result Diagrams: 06/08/22 06:25 06/08/22 06:25 Labs: Laboratory Results - last 24 hr 06/08/22 06:25: WBC 6.8, RBC 5.05, Hgb 16.0 H, Hct 45.9, MCV 90.9, MCH 31.7, MCHC 34.9, RDW Std Deviation 39.7, RDW Coeff of Darion 11.9, Plt Count 214, MPV 9.5, Immature Gran % (Auto) 3.500 H, Neut % (Auto) 57.0, Lymph % (Auto) 27.5, Mchenry % (Auto) 10.1 H, Eos % (Auto) 1.0, Baso % (Auto) 0.9, Absolute Neuts (auto) 3.9, Absolute Lymphs (auto) 1.87, Nucleated RBC % 0 06/08/22 06:25: Sodium 136, Potassium 2.5 L*, Chloride 89 L, Carbon Dioxide 37.0 H, Anion Gap 10, BUN 23 H, Creatinine 1.57 H, Estim Creat Clear Calc 35.57, Est GFR (MDRD) Af Amer 44 L, Est GFR (MDRD) Non-Af 36 L, BUN/Creatinine Ratio 14.6, Glucose 144 H, Calcium 9.6, Troponin I High Sens 6 Rhythm Strip Rhythm Strip: Sinus Rhythm Rate: 75 Ectopy: None Radiology Impression Brain CT 06/08/22 06:23 IMPRESSION: 1. Right parietal scalp swelling. 2. No acute intracranial abnormality. Electronically Signed: Moe Nelson MD at 7:31 EST Reading Location ID and State: [facility] / [place] Tel , Service support , Cervical Spine CT 06/08/22 06:25 IMPRESSION: No evidence of acute cervical spinal fracture or spondylolisthesis. Electronically Signed: Moe Nelson MD at 7:30 EST Reading Location ID and State: [facility] / [place] Tel , Service support , Thoracic Spine X-Ray 06/08/22 06:25 IMPRESSION: 1. No acute injuries identified involving the thoracic spine. 2. Degenerative changes. Electronically Signed: Moe Nelson MD at 7:11 EST Reading Location ID and State: [facility] / [place] Tel , Service support , Chest X-Ray 06/08/22 06:26 IMPRESSION: No acute findings in the chest. Electronically Signed: Moe Nelson MD at 7:10 EST Reading Location ID and State: [facility] / [place] Tel , Service support , Assessment & Plan Assessment/Plan (1) Syncope: (2) Acute hypokalemia: (3) MAILE (acute kidney injury): PLAN: Plan This 56-year-old female is being admitted for sudden onset of syncope and fall. 1. Syncope and fall most likely vasovagal syncope: Patient is being admitted in PCU. On cardiac telemetry. Orthostatic blood pressure. 2D echo ordered. Patient had loop recorder in September 2021 [employer]. Informatics Consultant is Dr. Marcy Calles in [facility]. We will try to get medical record. Order MRI. I do not have suspicion of seizure as per the detailed history given by patient and bystander, weakness her . Chest x-ray no acute finding. 2. Acute hypokalemia: Potassium is 2.5. Serum phosphorus magnesium level normal. Potassium replacement ordered. Monitor potassium. 3. Closed head injury with laceration: Cleaning and dressing. Patient had CT head which shows right patellar scalp swelling but no acute intracranial abnorma lity. Similarly she had CT C-spine and thoracic spine x-ray which did not show acute cervical spine fracture or spondylolisthesis. 4. History of asthma with recent acute bronchitis: Patient had about 6-7 days of Levaquin. Currently does not have URI or cough symptoms. Albuterol inhaler as needed. 5. Hypertension: Patient is states usually her blood pressure is on lower side in 100s. Admitted with 132/77, currently 106/77. 6. Morbid obesity: Her BMI is 41.2 kg/m? weight loss counseling done. Outpatient follow-up. VTE prophylaxis: Lovenox 40 mL subcu daily. Living will/advanced directive/end of life care: Patient does not have living will or advanced directive. After discussion of benefits/risks procedures involved with full code, DNR CC arrest and DNR CC, the patient and her opted for full code. Patient does want artificial life support including intubation, tube feed, ventilator and/chest compression, central venous catheter, vasopressor and DC shock if needed Total time spent in [id number] encounter in discussion of advanced dir ective 16 minutes. Clinical Impression(s) from Imaging Studies Brain CT 06/08/22 06:23 IMPRESSION: 1. Right parietal scalp swelling. 2. No acute intracranial abnormality. Electronically Signed: Moe Nelson MD at 7:31 EST Reading Location ID and State: [facility] / [place] Tel , Service support , Cervical Spine CT 06/08/22 06:25 IMPRESSION: No evidence of acute cervical spinal fracture or spondylolisthesis. Electronically Signed: Moe Nelson MD at 7:30 EST Reading Location ID and State: [facility] / [place] Tel , Service support , Thoracic Spine X-Ray 06/08/22 06:25 IMPRESSION: 1. No acute injuries identified involving the thoracic spine. 2. Degenerative changes. Electronically Signed: Moe Nelson MD at 7:11 EST Reading Location ID and State: [facility] / [place] Tel , Service support , Chest X-Ray 06/08/22 06:26 IMPRESSION: No acute findings in the chest. Electronically Signed: Moe Nelson MD at 7:10 EST Reading Location ID and State: [facility] / [place] Tel , Service support , Laboratory Results 06/08/22 06:25: WBC 6.8, RBC 5.05, Hgb 16.0 H, Hct 45.9, MCV 90.9, MCH 31.7, MCHC 34.9, RDW Std Deviation 39.7, RDW Coeff of Darion 11.9, Plt Count 214, MPV 9.5, Immature Gran % (Auto) 3.500 H, Neut % (Auto) 57.0, Lymph % (Auto) 27.5, Mchenry % (Auto) 10.1 H, Eos % (Auto) 1.0, Baso % (Auto) 0.9, Absolute Neuts (auto) 3.9, Absolute Lymphs (auto) 1.87, Nucleated RBC % 0 06/08/22 06:25: Sodium 136, Potassium 2.5 L*, Chloride 89 L, Carbon Dioxide 37.0 H, Anion Gap 10, BUN 23 H, Creatinine 1.57 H, Estim Creat Clear Calc 35.57, Est GFR (MDRD) Af Amer 44 L, Est GFR (MDRD) Non-Af 36 L, BUN/Creatinine Ratio 14.6, Glucose 144 H, Calcium 9.6, Troponin I High Sens 6 06/08/22 06:25: Phosphorus 3.1, Magnesium 2.1 Charges/Coding Visit Charges Inpatient E&M: 14711 Init Hosp L3 Procedures Hospitalists Procedures: 02842 Advncd Care Plan 30 Min
[2022-06-08 08:32] LABS: Magnesium 2.1 mg/dL (1.6-2.6); Phosphorus 3.1 mg/dL (2.5-4.9)
--- NOTE | 2022-06-08 10:23 | NURSING ---
Emergency documentation per weigh and charge worker.
--- NOTE | 2022-06-08 10:47 | ECHOD_ITS ---
Reason For Study: SYNCOPE Procedure This was a 2D Doppler, Color Flow transthoracic echocardiogram. Exam performed portable in patient room. Left Ventricle Normal LV size. Mild concentric left ventricular hypertrophy. The left ventricular ejection fraction is 60 %. Normal diastololic function. Right Ventricle Normal right ventricle. Atria The left and right atria are normal. Prominent eustachian valve. Bubble contrast study is negative for PFO/ASD. Tricuspid Valve Trivial tricuspid valve insufficiency. Unable to estimate RV systolic pressure due to insufficient tricuspid regurgitant envelope. Aortic Valve Mild (1+) aortic valve insufficiency. Pulmonic Valve The pulmonic valve is not well visualized. Great Vessels Normal sized aortic root. Pericardium/Pleural No pericardial effusion. Medication Performed a rapid injection of agitated mix of 9 cc saline and 1cc air to assess for atrial septal defect. MMode/2D Measurements & Calculations LVIDd: 3.7 cm IVSd: 1.2 cm Ao root diam: 3.4 cm LVIDs: 2.4 cm LVPWd: 0.77 cm RVDd: 3.7 cm FS: 33.6 % LAV(MOD-bp): 41.5 ml LVAd ap4: 22.7 cm2 LVAd ap2: 23.6 cm2 LAV(MOD-bp) Indexed: 19.2 ml/m2 LVLd ap4: 7.4 cm LVLd ap2: 7.6 cm LAV(MOD-sp2): 50.5 ml EDV(MOD-sp4): 57.5 ml EDV(MOD-sp2): 58.3 ml LAV(MOD-sp4): 30.3 ml EDV(sp4-el): 59.3 ml EDV(sp2-el): 61.9 ml LVAs ap4: 11.0 cm2 LVAs ap2: 11.5 cm2 LVLs ap4: 5.7 cm LVLs ap2: 5.9 cm ESV(MOD-sp4): 18.2 ml ESV(MOD-sp2): 19.6 ml ESV(sp4-el): 18.2 ml ESV(sp2-el): 19.0 ml EF(MOD-sp4): 68.4 % EF(MOD-sp2): 66.4 % EF(sp4-el): 69.4 % SV(MOD-sp4): 39.3 ml SV(MOD-sp2): 38.7 ml SV(sp4-el): 41.2 ml LA dimension(2D): 3.2 cm LA A4 area: 13.7 cm2 RA A4 area: 13.8 cm2 Time Measurements MV dec time: 0.22 sec Doppler Measurements & Calculations MV E max melvin: 74.8 cm/sec Lat Peak E' Melvin: 12.3 cm/sec Med Peak E' Melvin: 10.6 cm/sec MV A max melvin: 80.1 cm/sec E/E' lat: 6.1 E/E' med: 7.1 MV E/A: 0.93 MV V2 max: 85.7 cm/sec MV dec slope: 336.6 cm/sec2 Ao V2 max: 143.3 cm/sec MV max P.9 mmHg Ao max P.2 mmHg MV V2 mean: 57.2 cm/sec Ao V2 mean: 100.5 cm/sec MV mean P.4 mmHg Ao mean P.5 mmHg MV V2 VTI: 24.1 cm Ao V2 VTI: 32.8 cm AV (velocity ratio): 0.87 LV V1 max: 122.8 cm/sec PA V2 max: 95.6 cm/sec TR max melvin: 202.8 cm/sec LV V1 max P.0 mmHg TR max P.5 mmHg LV V1 mean P.6 mmHg LV V1 mean: 89.7 cm/sec LV V1 VTI: 28.5 cm ECHO/Echo Complete Interpretation Summary Mild concentric left ventricular hypertrophy. The left ventricular ejection fraction is 60 %. Ordering Physician: Jamel Ruiz Performed By: Madai Campos
[2022-06-08 11:33] LABS: Troponin-I HS 5 pg/mL (3.0-54.0)
--- NOTE | 2022-06-08 11:36 | MRI_ITS ---
STUDY: MRI BRAIN WITHOUT CONTRAST REASON FOR EXAM: Female, 56 years old. Syncope, fall, vertigo TECHNIQUE: Multiplanar multisequence imaging of the brain was performed without the administration of intravenous contrast. COMPARISON: Noncontrast head CT same date FINDINGS: The ventricles, cisterns, and sulci are within normal limits for patients age. There is no restricted diffusion to suggest acute ischemia or infarction. No succeptibility artifict to suggest intracranial hemorrhage or mineralization. Major intracranial signal voids are preserved. There is no midline shift, mass effect, or extra axial fluid collections are seen. No CP angle or IAC mass is seen. The orbits are unremarkable. The sella turcica and craniovertebral junction are within normal limits. The visualized paranasal sinuses are clear. The mastoid air cells are clear. MRI/Brain without Contrast IMPRESSION: No intracranial hemorrhage, acute infarct, or space occupying lesion seen on this noncontrast MRI of the brain. Electronically Signed: Angel Crystal MD at 18:18 EST ,
[2022-06-08] MEDS: Lactated Ringers 1,000 ML 100 ML IV ×2 (11:52→22:00)
[2022-06-08] MEDS: Enoxaparin 40 MG/0.4 ML Syringe SC (11:55)
[2022-06-08 14:03] LABS: Troponin-I HS 5 pg/mL (3.0-54.0)
[2022-06-08] MEDS: Zolpidem Tartrate 5 MG Tablet PO (21:59)
[2022-06-09 03:00] VITALS: PULSE 80
[2022-06-09 04:05] VITALS: BP 117/69; BP 130/57; BP 88/38; PULSE 107; PULSE 85; PULSE 91; RESP 16; TEMP 36.7; O2SAT 96
[2022-06-09] MEDS: Acetaminophen 325 MG Tablet 650 MG PO (04:39)
[2022-06-09 05:18] LABS: Absolute Lymphocyte Count 1.88 X10^3/uL (0.83-4.51); Absolute Neutrophil Count 3.5 X10^3/uL (2.0-7.7); Basophil# 0.05 X10^3/uL; Basophil% 0.8 % (0-1); Eosinophil# 0.08 X10^3/uL; Eosinophils% 1.3 % (0-5); Hematocrit 38.6 % (37-47); Hemoglobin 13.3 g/dL (12.0-15.0); Lymphocyte # 1.88 X10^3/ul (0.83-4.51); Lymphocyte % 29.7 % (19-41); Mean Corp Hgb Conc 34.5 g/dL (32-36); Mean Corpuscular Volume 92.8 fL (81-99); Mean Platelet Vol. 9.4 fl (6.2-12.0); Monocyte# 0.65 X10^3/uL; Monocyte% 10.3 % (0-10); NRBC Flagged by Analyzer 0 % (0-5); Neutrophil # 3.54 X10^3/uL (2.7-7.7); Platelet Count 170 K/mm3 (150-450); RBC Distribution Width CV 12.1 % (11.6-14.6); RBC Distribution Width SD 41.6 fl (35.1-43.9); Red Blood Count 4.16 M/mm3 (4.2-5.4); White Blood Count 6.3 K/mm3 (4.4-11.0)
[2022-06-09 05:43] LABS: Anion Gap 7 (5-15); BUN 11 mg/dL (7-18); BUN/Creat Ratio 10.2 RATIO (10-20); Calcium,Total 8.6 mg/dL (8.5-10.1); Chloride 99 mmol/L (98-107); Creatinine, Serum 1.08 mg/dL (0.55-1.02); EST Glomerular Filtration Rate 55 mL/min (>60); Est Glom Filt Rate - Afr Amer 67 mL/min (>60); Estimated Creatinine Clearance 51.71 ml/min; Glucose 123 mg/dL (74-106); Potassium 3.1 mmol/L (3.5-5.1); Sodium Level 139 mmol/L (136-145)
[2022-06-09 08:44] VITALS: O2SAT 95
[2022-06-09 09:39] VITALS: BP 120/60; PULSE 82; RESP 16; TEMP 36.7; O2SAT 96
--- NOTE | 2022-06-09 10:00 | DCINST_ITS ---
Discharge Instructions Diet Discharge Diet: 2000 mg Sodium Diet Activity Discharge Activity: Return to Normal Activity and May Not Drive May resume sexual activity in: No Restrictions Dressing / Incision Call your doctor if you observe: Fever of 101 or Higher, Coldness, Increased Pain, Numbness or Tingling, Change in Color, Inability to urinate, Inability to have a bowel movement, Using more than 1 pad per hour, Shortness of breath, Dizziness, Fainting spells, Swelling in the ankles, Chest pain, Prolonged hiccupping, Increased palpitations (irregular heartbeat) and Calf discomfort Follow Up Care Test Results: Test results from this visit will be discussed in further detail at your follow- up appointment, if applicable. Discharge Plan Admission Admit Date/Time: 06/08/22 08:12 Primary Reason for Your Visit: Syncope and fall Attending Provider: Jamel Ruiz Primary Care Provider: Bud Zuñiga Discharge Orders/Prescriptions Prescriptions: Continued diclofenac potassium 25 mg capsule 25 mg PO BID zolpidem [Ambien CR] 12.5 mg tablet,ext release multiphase 12.5 mg PO QHS alprazolam [Xanax] 0.5 mg tablet 0.5 mg PO DAILY albuterol sulfate 90 mcg/actuation HFA aerosol inhaler 1 inh inhalation ONCE furosemide 40 MG tablet 40 mg PO DAILY Discontinued levofloxacin [Levaquin] 250 mg Tablet PO DAILY Referrals / Follow Up: Bud Zuñiga MD [Primary Care Provider] - Disposition Disposition (needs filled in before D/C Order can be placed): Home, Self Care
[2022-06-09 11:37] VITALS: BP 106/53; BP 122/75; BP 86/48; PULSE 70; PULSE 75; PULSE 97
[2022-06-09] MEDS: Lactated Ringers 1,000 ML 999 ML IV (12:15)
--- NOTE | 2022-06-09 14:06 | DS.PCM_ITS ---
Providers Date of Admission: 06/08/22 Date of Discharge: 06/09/22 Primary Care Physician: Dr. Bud Zuñiga MD Reason For Visit: SYNCOPE Diagnosis Discharge Diagnosis (1) Syncope: Status: Acute Code(s): R55 - Syncope and collapse (2) Acute hypokalemia: Status: Acute Code(s): E87.6 - Hypokalemia (3) MAILE (acute kidney injury): Status: Acute Code(s): N17.9 - Acute kidney failure, unspecified Plan This 56-year-old female is being admitted for sudden onset of syncope and fall. 1. Syncope and fall most likely vasovagal syncope: Patient is being admitted in PCU. On cardiac telemetry. Orthostatic blood pressure. 2D echo ordered. Patient had loop recorder in September 2021 [employer]. Blending Technician is Dr. Marcy Calles in [facility]. We will try to get medical record. Order MRI. I do not have suspicion of seizure as per the detailed history given by patient and bystander, weakness her . Chest x-ray no acute finding. 06/09: Syncope most likely due to vasovagal syncope: Orthostatic shows drop in BP from supine to standing position therefore orthostatic hypotension. BP 122/75, heart rate 75 on supine decreased to 86/48, heart rate 97/min understanding. Patient had 2D echo reported EF 60% mild concentric LVH. MRI brain was negative for acute ischemia/hemorrhage or YOAN. Patient has appointment with her principal gifts officer Dr. Marcy Calles on coming 06/12/2021. Patient advised to keep the follow-up and will need interrogation of loop recorder. Unfortunately interrogation of loop recorder was not done here. 1 L of Ringer lactate given. Patient advised to have oral intake of about 2.5 L of fluid every day for the next 3 days. 2. Acute hypokalemia: Potassium is 2.5. Serum phosphorus magnesium level normal. Potassium replacement ordered. Monitor potassium. 06/09: Electrolytes shows mild hypokalemia 3.1 and potassium replaced. 3. Closed head injury with laceration: Cleaning and dressing. Patient had CT head which shows right patellar scalp swelling but no acute intracranial abnormality. Similarly she had CT C-spine and thoracic spine x-ray which did no t show acute cervical spine fracture or spondylolisthesis. 4. History of asthma with recent acute bronchitis: Patient had about 6-7 days of Levaquin. Currently does not have URI or cough symptoms. Albuterol inhaler as needed. 5. Hypertension: Patient is states usually her blood pressure is on lower side in 100s. Admitted with 132/77, currently 106/77. 6. Morbid obesity: Her BMI is 41.2 kg/m? weight loss counseling done. Outpatient follow-up. VTE prophylaxis: Lovenox 40 mg subcu daily. Living will/advanced directive/end of life care: Patient does not have living will or advanced directive. After discussion of benefits/risks procedures involved with full code, DNR CC arrest and DNR CC, the patient and her opted for full code. Patient does want artificial life support including intubation, tube feed, ventilator and/chest compression, central venous catheter, vasopressor and DC shock if needed Discharge medication reconciliation done. Discharge follow-up instructions completed. Discharge process discussed with the patient and all questions were answered to patient's satisfaction. Total time spent, exact 35 minutes on discharge meds reconciliation, examination, coordination of care with nurses and ancillary staff, review of im aging and blood test and discussion with the patient on follow-up instructions. Clinical Impression(s) from Imaging Studies Brain CT 06/08/22 06:23 IMPRESSION: 1. Right parietal scalp swelling. 2. No acute intracranial abnormality. Electronically Signed: Moe Nelson MD at 7:31 EST Reading Location ID and State: [facility] [place] / [place] Tel , Service support , Cervical Spine CT 06/08/22 06:25 IMPRESSION: No evidence of acute cervical spinal fracture or spondylolisthesis. Electronically Signed: Moe Nelson MD at 7:30 EST , Thoracic Spine X-Ray 06/08/22 06:25 IMPRESSION: 1. No acute injuries identified involving the thoracic spine. 2. Degenerative changes. Electronically Signed: Moe Nelson MD at 7:11 EST Reading Location ID and State: [facility] [place] / [place] Tel , Service support , Chest X-Ray 06/08/22 06:26 IMPRESSION: No acute findings in the chest. Electronically Signed: Moe Nelson MD at 7:10 EST Reading Location ID and State: [facility] [place] / [place] Tel , Service support , Laboratory Results 06/08/22 06:25: WBC 6.8, RBC 5.05, Hgb 16.0 H, Hct 45.9, MCV 90.9, MCH 31.7, MCHC 34.9, RDW Std Deviation 39.7, RDW Coeff of Darion 11.9, Plt Count 214, MPV 9.5, Immature Gran % (Auto) 3.500 H, Neut % (Auto) 57.0, Lymph % (Auto) 27.5, [place]quois % (Auto) 10.1 H, Eos % (Auto) 1.0, Baso % (Auto) 0.9, Absolute Neuts (auto) 3.9, Absolute Lymphs (auto) 1.87, Nucleated RBC % 0 06/08/22 06:25: Sodium 136, Potassium 2.5 L*, Chloride 89 L, Carbon Dioxide 37.0 H, Anion Gap 10, BUN 23 H, Creatinine 1.57 H, Estim Creat Clear Calc 35.57, Est GFR (MDRD) Af Amer 44 L, Est GFR (MDRD) Non-Af 36 L, BUN/Creatinine Ratio 14.6, Glucose 144 H, Calcium 9.6, Troponin I High Sens 6 06/08/22 06:25: Phosphorus 3.1, Magnesium 2.1 Medications at Discharge Home Medications furosemide 40 mg tablet 40 mg PO DAILY 01/16/20 albuterol sulfate 90 mcg/actuation aerosol inhaler 1 inh inhalation ONCE 03/15/22 alprazolam 0.5 mg tablet (Xanax) 0.5 mg PO DAILY 03/15/22 diclofenac potassium 25 mg capsule 25 mg PO BID 03/15/22 zolpidem 12.5 mg tablet,extended release,multiphase (Ambien CR) 12.5 mg PO QHS 03/15/22 Physical Exam Narrative Physical exam Seen and examined. Patient denies lightheadedness dizziness or vertigo. General: Alert, Oriented x3, Cooperative. Awake HEENT: Small laceration over occipital region of head. No active bleeding. Atraumatic, PERRLA, EOMI, Normocephalic Oral: Oral mucosa moist. No Gingival or Mucosal Lesions/ Ulcerations Neck: Supple, No JVD, Negative Carotid Bruits Lungs: Air entry equal in bilateral lung bases. No crepitation/rhonchi Cardiovascular: Regular rate, Regular Rhythm, Normal S1, Normal S2, No murmurs Abdomen: Bowel Sounds Present, Soft, Non Tender, Non-Distended : No renal angle tenderness. No suprapubic tenderness. Extremities: No edema, Capillary Refill Less than 3 Seconds Skin: No rashes, No breakdown Musculoskeletal: Mild soft tissue muscle tenderness over back of neck and right scapular area. No Tenderness to extremity joints. Neurological: Cranial nerves II-XII grossly intact, DTR 2+/4 and Symmetrical, Neuro grossly intact Psych/Mental Status: flat affect Weight / BMI Weight Weight: 249 lb 9.012 oz Body Mass Index (BMI) 41.1 ABG / Lab / Microbiology Data Result Diagrams: 06/09/22 04:53 06/09/22 04:53 Laboratory: Laboratory Results - last 24 hr 06/09/22 04:53: WBC 6.3, RBC 4.16 L, Hgb 13.3, Hct 38.6, MCV 92.8, MCH 32.0, MCHC 34.5, RDW Std Deviation 41.6, RDW Coeff of Darion 12.1, Plt Count 170, MPV 9.4, Immature Gran % (Auto) 1.900 H, Neut % (Auto) 56.0, Lymph % (Auto) 29.7, Mo no % (Auto) 10.3 H, Eos % (Auto) 1.3, Baso % (Auto) 0.8, Absolute Neuts (auto) 3.5, Absolute Lymphs (auto) 1.88, Nucleated RBC % 0 06/09/22 04:53: Sodium 139, Potassium 3.1 L, Chloride 99, Carbon Dioxide 33.0 H, Anion Gap 7, BUN 11, Creatinine 1.08 H, Estim Creat Clear Calc 51.71, Est GFR (MDRD) Af Amer 67, Est GFR (MDRD) Non-Af 55 L, BUN/Creatinine Ratio 10.2, Glucose 123 H, Calcium 8.6 Radiography Diagnostic Testing: Radiology Impression Brain MRI 06/08/22 11:36 IMPRESSION: No intracranial hemorrhage, acute infarct, or space occupying lesion seen on this noncontrast MRI of the brain. Electronically Signed: Angel Crsytal MD at 18:18 EST , D/C Instructions Discharge Diet: 2000 mg Sodium Diet May resume sexual activity in: No Restrictions Call your doctor if you observe: Fever of 101 or Higher, Coldness, Increased Pain, Numbness or Tingling, Change in Color, Inability to urinate, Inability to have a bowel movement, Using more than 1 pad per hour, Shortness of breath, Dizziness, Fainting spells, Swelling in the ankles, Chest pain, Prolonged hiccupping, Increased palpitations (irregular heartbeat) and Calf discomfort Meaningful Use Info Meaningful Use Diagnoses (Choose all that apply): None applicable Discharge Plan Admission Admit Date/Time: 06/08/22 08:12 Primary Reason for Your Visit: Syncope and fall Attending Provider: Jamel Ruiz Primary Care Provider: Bud Zuñiga Discharge Orders/Prescriptions Prescriptions: Continued diclofenac potassium 25 mg capsule 25 mg PO BID zolpidem [Ambien CR] 12.5 mg tablet,ext release multiphase 12.5 mg PO QHS alprazolam [Xanax] 0.5 mg tablet 0.5 mg PO DAILY albuterol sulfate 90 mcg/actuation HFA aerosol inhaler 1 inh inhalation ONCE furosemide 40 MG tablet 40 mg PO DAILY Discontinued levofloxacin [Levaquin] 250 mg Tablet PO DAILY Referrals / Follow Up: Bud Zuñiga MD [Primary Care Provider] - Disposition Disposition (needs filled in before D/C Order can be placed): Home, Self Care Charges/Coding Visit Charges Inpatient E&M: 09142 Disch Hosp >30min
--- NOTE | 2022-06-09 14:30 | CASEMGMT ---
RADHA GUERRERO DC Planning assessment: Face to Face with pt for DC planning/care coordination. Pt alert, dressed for DC with spouse at bedside. RADHA GUERRERO role at [facility] explained and pt voiced understanding. Pt state she has been independent prior to admission and denies any concerns with returning home. States her spouse is available to assist her if needed. Pt states she has follow-up appointments scheduled and denies any concerns with transportation to these appointments. No further discharge needs identified. Wyatt Jean Baptiste RN CM
[2022-06-09 15:00] VITALS: BP 114/68; PULSE 73; RESP 16; O2SAT 96
== END 2022-06-09 15:10 | disposition home or self-care (01) | DRG 312 ==
LOC: ED 07:42 → PCU 08:30
PROVIDERS: Admitting Provider Internal Medicine; Emergency Provider Emergency Medicine; PCP Family Medicine; Visit Provider Internal Medicine
DX: I95.1 Orthostatic hypotension (principal); Z68.41 Body mass index [BMI] 40.0-44.9, adult; E66.01 Morbid (severe) obesity due to excess calories; E87.6 Hypokalemia; I10 Essential (primary) hypertension; S01.01XA Laceration without foreign body of scalp, initial encounter; W01.10XA Fall on same level from slipping, tripping and stumbling with subsequent striking against unspecified object, initial encounter; Y92.002 Bathroom of unspecified non-institutional (private) residence as the place of occurrence of the external cause; Z79.899 Other long term (current) drug therapy
CPT/HCPCS: 36415; 70450; 70551; 71046; 72070; 72125; 80048; 83735; 84100; 84484; 85025; 93005; 93306; 99285; J7030; J7040; J7050; J7120; Q9957; A4216

== ENCOUNTER → 2022-08-15 | Outpatient (CLI) | payer OTHER, SELFPAY ==
--- NOTE | 2022-08-15 07:45 | MRI_ITS ---
STUDY: MRI LEFT SHOULDER REASON FOR EXAM: Female, 57 years old. Left shoulder impingement/pain. TECHNIQUE: Standardized fat and water weighted pulse sequences were obtained in all 3 orthogonal planes. COMPARISON: None. FINDINGS: Supraspinatus tendinosis with thickening and increased signal intensity without a full-thickness tear (coronal series 6 images 11-15). Infraspinatus tendinosis with thinning/attenuation without a full-thickness tear (coronal series 6 images 7-10). Subscapularis tendinosis with thickening and increased signal intensity without a full-thickness tear (axial series 3 images 12-16). Normal teres minor tendon. Normal supraspinatus muscle. Normal infraspinatus muscle. Normal subscapularis muscle. Normal teres minor muscle. Mild loss of articular cartilage of the glenohumeral joint with a small glenohumeral joint effusion (axial series 3 images 7-14). Cystic change in the lateral aspect of the humeral head (axial series 3 image 7). Normal biceps labral complex. Normal intracapsular long biceps tendon. Signal alteration in the superior labrum without a detached tear (coronal series 6 image 12). Normal capsulo- ligamentous complex. Normal rotator interval. AC joint hypertrophy with narrowing of the subacromial space (coronal series 6 images 14-18, sagittal series 7 images 9-13). There is a Type II morphology (curved), with a neutral orientation. Small amount of fluid in the subacromial-subdeltoid bursa (coronal series 6 image 8). Normal visualized coracohumeral and coracoacromial ligaments. Normal quadrilateral space. Normal axillary space. Normal deltoid muscle. Normal trapezius muscle. MRI/Upper Ext Joint Only(Routine) IMPRESSION: Supraspinatus, infraspinatus and subscapularis tendinosis. No full-thickness tear is present. Mild arthrosis of the glenohumeral joint. Cystic change in the humeral head. AC joint hypertrophy with narrowing of the subacromial space. Superior labral tear. Small joint effusion with a small amount of subacromial-subdeltoid bursal fluid. Electronically Signed: Kal Meza, at 15:41 EDT ,
== END | disposition home or self-care (01) ==
PROVIDERS: PCP Family Medicine; Referring Provider Orthopaedic Surgery; Visit Provider Orthopaedic Surgery
DX: M75.42 Impingement syndrome of left shoulder (principal); M25.512 Pain in left shoulder
CPT/HCPCS: 73221

== ENCOUNTER → 2023-09-17 | Outpatient (CLI) | payer OTHER, SELFPAY ==
--- NOTE | 2023-09-17 09:30 | MRI_ITS ---
STUDY: MRI CERVICAL SPINE WITHOUT CONTRAST REASON FOR EXAM: Female, 58 years old. left shoulder/neck issues x 2022 sharp pain between c1-c6, left shoulder pain- dull but consent surgical hx: hysterectomy, right shoulder rotar cuff repair, tubal, tmj, gallbladder removal TECHNIQUE: Standardized fat and water weighted pulse sequences were obtained in the sagittal and axial planes. COMPARISON: CT of the cervical spine dated June 08, 2022 FINDINGS: Normal foramen magnum and brainstem-cervical cord junction. Normal craniovertebral junction. Normal anterior atlantoaxial articulation. Normal odontoid process. There is straightening of the normal cervical lordosis. Normal vertebral bodies and posterior osseous elements. C2-3: Diffuse disc desiccation. Normal endplates. Normal disc height and morphology. Normal central canal and intervertebral neural foramina. C3-4: Normal endplates. Diffuse disc desiccation with mild posterior disc space narrowing but no bulge or herniation of the disc. Normal central canal and left neural foramen. Moderate right foraminal stenosis with nerve root compression due to facet joint hypertrophy, see image #17/30 series 16. Minimal retrolisthesis of less than 2 mm. C4-5: Normal endplates. Diffuse disc desiccation. Normal disc height and morphology. Normal central canal and intervertebral neural foramina. C5-6: Severe disc space narrowing with a diffuse disc spur complex. Normal central canal and right neural foramen. Mild to moderate left foraminal stenosis with nerve root impingement due to combined uncovertebral facet joint hypertrophy. C6-7: Normal endplates. Slight anterolisthesis of C6 on C7 of 2 mm. Normal disc height and morphology. Normal central canal and intervertebral neural foramina. C7-T1: Normal endplates. Diffuse disc desiccation. Normal disc space height and morphology. Slight anterolisthesis of C7 on T1 of no more than 2 mm.. Normal central canal and intervertebral neural foramina. Normal cervical cord. There is no demonstrated cervical cord syrinx cavity. Normal visualized soft tissue structures. MRI/Spine Cervical (Routine) IMPRESSION: 1. Multilevel degenerative changes, as described above. 2. Moderate right foraminal stenosis with nerve root compression at C3-C4 3. Severe disc space narrowing at C5-C6 4. Mild to moderate left foraminal stenosis with nerve root impingement at C5-C6 Electronically Signed: Handy Cagle MD at 15:26 EDT ,
--- NOTE | 2023-09-17 10:15 | MRI_ITS ---
STUDY: MRI LEFT SHOULDER REASON FOR EXAM: Female, 58 years old. Left shoulder/neck issues x 2022, sharp pain between C1-C6, left shoulder pain - dull but constant. Surgical history: hysterectomy, right shoulder rotator cuff repair, tubal, TMJ, gallbladder removal. TECHNIQUE: Standardized fat and water weighted pulse sequences were obtained in all 3 orthogonal planes. COMPARISON: None. FINDINGS: There is minimal supraspinatus tendinosis without a full-thickness tear (coronal T2 series 5 images 9-12). Normal infraspinatus tendon. Normal subscapularis tendon. Normal teres minor tendon. Normal supraspinatus muscle. Normal infraspinatus muscle. Normal subscapularis muscle. Normal teres minor muscle. There is a small focus of subchondral marrow edema in the central glenoid (coronal T2 series 5 image 13). There is enthesopathic subcortical cyst formation of the greater tuberosity of the humeral head. Normal biceps labral complex. Normal intracapsular long biceps tendon. Normal rotator interval. There is a possible small superior glenoid labral tear (coronal PD series 4 images 11-13). There is mild acromioclavicular arthrosis. There is a Type II morphology (curved), with a neutral orientation. There is trace subacromial-subdeltoid bursal fluid. Normal visualized coracohumeral and coracoacromial ligaments. Normal quadrilateral space. Normal axillary space. Normal deltoid muscle. Normal trapezius muscle. MRI/Upper Ext Joint Only(Routine) IMPRESSION: Minimal supraspinatus tendinosis without a full-thickness rotator cuff tear. Small focus of subchondral marrow edema in the central glenoid. Possible small superior glenoid labral tear. Mild acromioclavicular arthrosis. Minimal subacromial-subdeltoid bursitis. Electronically Signed: Dino Fontenot MD at 12:53 EDT ,
== END | disposition home or self-care (01) ==
LOC: MRI 09:10
PROVIDERS: PCP Family Medicine; Referring Provider Physician Assistant; Visit Provider Physician Assistant
DX: M25.512 Pain in left shoulder (principal)
CPT/HCPCS: 72141; 73221

== ENCOUNTER 2023-11-09 07:33 | Emergency (ER) | payer OTHER, SELFPAY ==
[2023-11-09 07:34] VITALS: BP 139/80; PULSE 85; RESP 14; TEMP 36.6; O2SAT 99; BMI 25.8
--- NOTE | 2023-11-09 07:41 | EKG12_ITS ---
Test Reason : SYNCOPE Blood Pressure : / mmHG Vent. Rate : 083 BPM Atrial Rate : 083 BPM P-R Int : 176 ms QRS Dur : 094 ms QT Int : 420 ms P-R-T Axes : 047 -10 047 degrees QTc Int : 493 ms Normal sinus rhythm Possible Lateral infarct , age undetermined Inferior infarct , age undetermined Abnormal ECG Confirmed by NEENA BUTTERFIELD, JOHNNY ([id number]), editor newspaper LEXIE GUARDADO ([id number]) on 11/12/2023 9:42:56 AM Referred By: Confirmed By:JULIETA CHAUDHARY MD
--- NOTE | 2023-11-09 07:58 | CT_ITS ---
STUDY: CT BRAIN WITHOUT CONTRAST REASON FOR EXAM: Female, 58 years old. Headaches following head injury. RADIATION DOSAGE (If Supplied By Facility): CTDIvol = ( 44.99 ) mGy, DLP = ( 745.49 ) mGycm TECHNIQUE: Transaxial CT imaging of the brain was performed without administration of intravenous contrast material. Individualized dose optimization techniques were used for this CT. COMPARISON: Comparison is made with prior study dated June 08, 2022. FINDINGS: Normal soft tissue structures. Normal calvarium. Normal size ventricles and extra-axial spaces for the patient''s age. Normal white matter tracts of the cerebral hemispheres. Normal basal ganglia and thalami. Normal brainstem. Normal cerebellum. There is no intracranial hemorrhage. There are no findings of an acute ischemic infarction. Normal visualized paranasal sinuses. CT/Brain/Head without Contrast IMPRESSION: Normal unenhanced CT scan of the brain. Electronically Signed: Serafin Boateng MD at 8:20 EDT ,
--- NOTE | 2023-11-09 07:59 | EX.ED.DYSGE1 ---
HPI History of Present Illness Chief Complaint: Syncope Informant: patient Narrative Narrative: 58-year-old female presenting to the emergency room with chief complaint of headache blurry vision and syncope. Patient states that she had 2 syncopal episodes on Sunday a third 1 on Sunday. She states that she had developed a purple blob in her midline vision that resolved but returned again last night. She spoke with her logging assistant office who advised her to be evaluated yesterday she returns today concerned because the purple blob returned. She notes bilateral blurry vision but not to the point where she cannot operate her cell phone. She states that she has had problems with hypokalemia in the past. She denies any arm or leg symptoms. No abdominal symptoms. She takes spironolactone and Lasix as needed for leg swelling. She notes a frontal headache. Patient is able to show me recent labs on her phone. [facility] Medical History Closed head injury Uncontrolled hypertension Acute maxillary sinusitis, unspecified Home Medications ?Medication ?Instructions ?Recorded ?Last Taken ?Type furosemide 40 mg tablet 40 mg PO DAILY 01/16/20 Unknown History albuterol sulfate 90 mcg/actuation 1 inh inhalation ONCE 03/15/22 Unknown History aerosol inhaler alprazolam 0.5 mg tablet (Xanax) 0.5 mg PO DAILY 03/15/22 Unknown History diclofenac potassium 25 mg capsule 25 mg PO BID 03/15/22 Unknown History zolpidem 12.5 mg tablet,extended 12.5 mg PO QHS 03/15/22 Unknown History release,multiphase (Ambien CR) Allergy/AdvReac Type Severity Reaction Status Date / Time banana Allergy Other Verified 11/09/23 07:34 Penicillins Allergy Anaphylaxis Verified 11/09/23 07:34 prednisone Allergy Hives Verified 11/09/23 07:34 vancomycin Allergy Other Verified 11/09/23 07:34 Family History Other Cancer Heart disease Kidney disease Social History Smoking Status: Never smoker alcohol intake: never ROS ROS ED Constitutional Constitutional ED: Denies chills, fever(s) or weight loss Eyes Eyes: Reports blurry vision and other Details: See HPI ; Denies change in vision or diplopia ENT ENT ED: Denies ear pain, rhinorrhea or sore throat Cardiovascular Cardiovascular: Reports other Details: Syncope x 3 ; Denies chest pain, orthopnea, palpitations or racing heartbeat Respiratory/Chest Respiratory/Chest: Denies cough, dyspnea or orthopnea Gastrointestinal Gastrointestinal: Denies abdominal pain, diarrhea, nausea or vomiting Genitourinary Genitourinary ED: Denies dysuria, hematuria or urinary frequency Musculoskeletal Musculoskeletal: Denies arthralgias or myalgias Integumentary Denies abscess or rash Neurologic Neurologic: Reports headache(s); Denies paresthesias or weakness Psychiatric Psychiatric: Denies anxiety, depression, suicidal ideation or suicidal thoughts Endocrine Endocrinology: Denies polydipsia, polyphagia or polyuria Allergic/Immunologic Allergic/Immunologic ED: Denies mouth swelling, tongue swelling or urticaria EXAM Physical Exam Const Vital Signs: 11/09/23 07:34 11/09/23 07:40 11/09/23 09:34 Temperature 97.9 F Temperature Source Temporal Pulse Rate 85 67 Respiratory Rate 14 16 Respiratory Effort Normal Respiratory Pattern Normal Blood Pressure 139/80 H 115/71 Blood Pressure Mean 99 85 Pulse Ox 99 100 Oxygen Delivery Method Room Air Room Air Positive well nourished and well developed General Appearance ED: well developed HEENT Reports normocephalic, head/scalp atraumatic and moist mucous membranes Eyes PERRL and EOMs intact bilaterally Neck no lymphadenopathy, supple and no JVD Resp normal respiratory effort and clear to auscultation bilaterally Cardio regular rate, regular rhythm and no murmurs GI normal to inspection, nondistended, normoactive bowel sounds and non-tender Palpation: soft Back/Spine no CVA tenderness and normal ROM Extremity normal to inspection General Extremety ED: Yes edema General Extremity: edema bilateral lower extremity Details: mild Neuro oriented x3 and CN's II-XII intact bilaterally Sensorium / Orientation: alert Motor Exam: strength 5/5 throughout Psych mental status grossly normal Mood & Affect: Negative for depressed or tearful Skin no rashes or lesions noted and no wounds MDM MDM MDM Narrative Medical decision making narrative: Differential diagnosis includes but not limited to ACS electrolyte abnormalities migraine intracranial hemorrhage stroke EKG is a normal sinus rhythm. Hemoglobin 13.9 potassium 3.8 troponin is less than 3 glucose 158 creatinine 1.28 BUN of 23. Anion gap is 8. My independent interpretation of the chest x-ray is no acute process. CT noncontrast of the brain was obtained which does not demonstrate any acute findings per radiology read. Patient has remained in normal sinus rhythm here. She received Toradol for headache. This point patient be discharged home. She has a history of syncope felt to be related to POTS. I am not sure what to make of the visual disturbance at this time as it has been intermittent. History & Record Review Discussion w/independent historian: Patient Additional record(s) reviewed:: Prior labs Lab Data Attestation: I reviewed the patient's lab results. Labs: Laboratory Results - last 24 hr 11/09/23 08:07 WBC 7.4 RBC 4.52 Hgb 13.9 Hct 40.8 MCV 90.3 MCH 30.8 MCHC 34.1 RDW Std Deviation 39.0 RDW Coeff of [place] 11.9 Plt Count 213 MPV 9.3 Immature Gran % (Auto) 0.400 Neut % (Auto) 58.4 Lymph % (Auto) 32.6 [place] % (Auto) 6.1 Eos % (Auto) 1.8 Baso % (Auto) 0.7 Absolute Neuts (auto) 4.3 Absolute Lymphs (auto) 2.40 Nucleated RBC % 0 Sodium 137 Potassium 3.8 Chloride 94 L Carbon Dioxide 35.0 H Anion Gap 8 BUN 23 H Creatinine 1.28 H Estim Creat Clear Calc 46.62 Est GFR (MDRD) Af Amer 55 L Est GFR (MDRD) Non-Af 45 L BUN/Creatinine Ratio 18.0 Glucose 150 H Calcium 9.9 Troponin I High Sens < 3 L Radiography Diagnostic Testing: Clinical Impression(s) from Imaging Studies Brain CT 11/09/23 07:58 IMPRESSION: Normal unenhanced CT scan of the brain. Electronically Signed: Serafin Boateng MD at 8:20 EDT , Chest X-Ray 11/09/23 08:11 IMPRESSION: No acute abnormality is seen. A loop recorder device is seen overlying the left side of the heart. Electronically Signed: Serafin Boaetng MD at 8:21 EDT , EKG Initial EKG: Attestation: I personally reviewed and interpreted this EKG as follows: Comments: Normal sinus rhythm ventricular oral rhythm 83 bpm. Discharge Plan Triage Chief Complaint: Syncope ED Provider: Odilon Amezcua Dx/Rx/DC Orders Clinical Impression: Syncope, Headache, Visual disturbance Instructions: Causes of Syncope Prescriptions: No Action diclofenac potassium 25 mg capsule 25 mg PO BID zolpidem [Ambien CR] 12.5 mg tablet,ext release multiphase 12.5 mg PO QHS alprazolam [Xanax] 0.5 mg tablet 0.5 mg PO DAILY albuterol sulfate 90 mcg/actuation HFA aerosol inhaler 1 inh inhalation ONCE furosemide 40 MG tablet 40 mg PO DAILY Primary Care Provider: Bud Zuñiga Referrals: Bud Zuñiga MD [Primary Care Provider] - 3-5 Days if not improving Print Language: Frisian Disposition Disposition: Home, Self Care
--- NOTE | 2023-11-09 08:11 | RAD_ITS ---
STUDY: X-RAY CHEST REASON FOR EXAM: Female, 58 years old. Syncope TECHNIQUE: Single AP portable view of the chest. COMPARISON: Comparison is made with prior study dated June 08, 2022. FINDINGS: EKG electrodes are seen. A loop recorder device is seen overlying the left portion of the cardiac shadow. The lungs are clear and expanded. There is no demonstrated pleural abnormality. Normal size heart. Normal mediastinum and ai. Normal visualized pulmonary arteries. Normal visualized aortic arch and descending thoracic aorta. Normal visualized thoracic spine. Normal visualized ribs, clavicles, and shoulders. There is no demonstrated abnormality of the visualized soft tissue structures of the upper abdomen. RAD/Chest 1 View (Portable) IMPRESSION: No acute abnormality is seen. A loop recorder device is seen overlying the left side of the heart. Electronically Signed: Serafin Boateng MD at 8:21 EDT ,
[2023-11-09 08:16] LABS: Absolute Neutrophil Count 4.3 X10^3/uL (2.0-7.7); Basophil# 0.05 X10^3/uL; Basophil% 0.7 % (0-1); Eosinophil# 0.13 X10^3/uL; Eosinophils% 1.8 % (0-5); Hematocrit 40.8 % (37-47); Hemoglobin 13.9 g/dL (12.0-15.0); Lymphocyte % 32.6 % (19-41); Mean Corp Hgb Conc 34.1 g/dL (32-36); Mean Corpuscular Hgb 30.8 pg (27.0-32.0); Mean Corpuscular Volume 90.3 fL (81-99); Mean Platelet Vol. 9.3 fl (6.2-12.0); Monocyte# 0.45 X10^3/uL; Monocyte% 6.1 % (0-10); NRBC Flagged by Analyzer 0 % (0-5); Neutrophil % 58.4 % (47-70); Platelet Count 213 K/mm3 (150-450); RBC Distribution Width CV 11.9 % (11.6-14.6); Red Blood Count 4.52 M/mm3 (4.2-5.4); White Blood Count 7.4 K/mm3 (4.4-11.0)
[2023-11-09 08:36] LABS: Anion Gap 8 (5-15); BUN 23 mg/dL (7-18); Calcium,Total 9.9 mg/dL (8.5-10.1); Chloride 94 mmol/L (98-107); Creatinine, Serum 1.28 mg/dL (0.55-1.02); EST Glomerular Filtration Rate 45 mL/min (>60); Est Glom Filt Rate - Afr Amer 55 mL/min (>60); Estimated Creatinine Clearance 46.62 ml/min; Glucose 150 mg/dL (74-106); Potassium 3.8 mmol/L (3.5-5.1); Sodium Level 137 mmol/L (136-145); Troponin-I HS < 3 pg/mL (3.0-54.0)
[2023-11-09] MEDS: Ketorolac 30 MG/ML Syringe IV (09:30)
[2023-11-09 09:34] VITALS: BP 115/71; PULSE 67; RESP 16; O2SAT 100
[2023-11-09 10:00] VITALS: BP 115/75; PULSE 64; RESP 18; TEMP 36.4; O2SAT 99
== END 2023-11-09 10:40 | disposition home or self-care (01) ==
PROVIDERS: Emergency Provider Emergency Medicine; PCP Family Medicine; Visit Provider Emergency Medicine
DX: R55 Syncope and collapse (principal); R51.9 Headache, unspecified; I10 Essential (primary) hypertension; H53.9 Unspecified visual disturbance
CPT/HCPCS: 70450; 71045; 80048; 84484; 85025; 93005; 96374; 99284; A4216

== ENCOUNTER → 2024-01-18 | Outpatient (CLI) | payer OTHER, SELFPAY ==
--- NOTE | 2024-01-18 10:16 | MRI_ITS ---
STUDY: MRI BRAIN WITH AND WITHOUT CONTRAST REASON FOR EXAM: Female, 58 years old. SYNCOPE TECHNIQUE: Standardized multiplanar fat and water weighted pulse sequences were obtained. IV 14 cc clariscan was administered for the contrast portion of the examination. COMPARISON: MRI of the brain dated June 08, 2022. Head CT dated November 09, 2023. FINDINGS: Normal size of the ventricles and extra-axial spaces for the patient''s age. Normal white matter tracts of the supratentorial brain. There is no evidence for recent intracranial ischemia or other cause of cytotoxic edema on diffusion weighted imaging (DWI). Normal T2* images of the brain without demonstrated susceptibility artifact. There is no demonstrated hemosiderin stain. There are no demyelinating plagues of the supratentorial brain, brainstem or cerebellum. There are no findings suspicious for multiple sclerosis (MS). Normal bilateral basal ganglia. Normal thalami. There is no extra-axial fluid accumulation. Normal flow voids within the major intracranial circulation suggesting patency by spin echo criteria. Normal venous enhancement. There is no enhancing intra-axial or extra-axial abnormality. No enhancing brain lesions are present. No focal parenchymal abnormality is seen. No visualized parenchymal edema. No hydrocephalus is present. Normal sella turcica, pituitary gland, infundibular stalk, optic chiasm and hypothalamus. Normal tectal plate and pineal gland. Normal midbrain, bird and medulla. Normal cerebellum. Normal basal cisterns. Normal bilateral temporal bones. Normal bilateral internal auditory canals. No demonstrated orbital abnormality, within the constraints of a routine brain study. Normal visualized paranasal sinuses. Normal calvarium and skull base. Normal visualized soft tissue structures. Normal visualized upper cervical spine. MRI/Brain W/WO Contrast IMPRESSION: 1. Normal unenhanced and enhanced MRI of the brain. 2. No enhancing brain lesions are present. No focal parenchymal abnormality is seen. No visualized parenchymal edema. No hydrocephalus is present. Electronically Signed: Handy Cagle MD at 15:14 EDT ,
== END | disposition home or self-care (01) ==
LOC: MRI 10:13
PROVIDERS: PCP Family Medicine; Referring Provider Family Medicine; Visit Provider Family Medicine
DX: R55 Syncope and collapse (principal); R51.9 Headache, unspecified
CPT/HCPCS: 70553; A9575